=== PATIENT | female | born 1935 | race Caucasian/White ===

== ENCOUNTER 2017-10-22 12:31 | Emergency (ER) | payer MEDICARE ==
[~2017-10-22] VITALS: Ht 165.1 cm; Wt 40.8 kg
[~2017-10-22 12:31] MED LIST: AMLODIPINE BESY10 MG PO; BUMETANIDE1 MG PO; DOXAZOSIN MESYLA2 MG PO; GABAPENTIN300 MG PO; KAYEXALATE453.6 GM PO; LEVAQUIN250 MG PO; METOPROLOL TART25 MG PO; SODIUM BICARBO650 MG PO; Z.0.AMIODARONE HCL20 PO; Z.0.HYDRALAZINE HC10 PO; Z.0.NORVASC5 MG PO; Z.0.ZOLOFT50 MG PO
--- OUTSIDE RECORDS SUMMARY | 2017-10-22 12:34 | XMS REPORT | Clinical Summary ---
Author Author [facility] [facility] Address Unknown Phone Unavailable Care Team Providers Care Hotel Security Officer Name Role Phone Nico Fernando DO PCP Allergies No Known Allergies Current Medications Prescription Sig. Disp. Refills Start End Date Status Date amLODIPine (NORVASC) 10 TK 1 T PO D 0 04/01/20 Active mg tablet 17 hydroCHLOROthiazide TK 1 T PO QD 1 03/08/20 Active (HYDRODIURIL) 25 MG 17 tablet isosorbide mononitrate TK 1 T PO QD 3 04/09/20 Active (IMDUR) 60 MG 24 hr 17 tablet metoprolol tartrate TK 1 T PO TID 3 03/31/20 Active (LOPRESSOR) 25 mg tablet 17 sertraline (ZOLOFT) 100 TK 1 T PO QD 3 03/03/20 Active MG tablet 17 aspirin-calcium carbonate Take 81 mg by mouth. Active 81 mg-300 mg calcium(777 mg) tablet Active Problems Problem Noted Date AAA (abdominal aortic aneurysm) 05/22/2017 Last Assessment & Plan: Patient is here to discuss upcoming surgery, TEVAR and carotid-sub bypass Patient with abdominal aortic aneurysm. The patient and I went over the anatomy related to this, risk factors, warning signs, and potential for rupture at any size. Discussed with the patient our general duty nurse to wait until 5.5 cm and the reasoning behind that. Endovascular and open abdominal aortic aneurysm repair both discussed, described, and used a visual posters to help clarify. Major morbidity and mortality were both discussed. Open aortic complications including injury to nearby structures, sexual dysfunction, later abdominal surgical complications were all discussed. Endovascular complications including endoleak, persistent expansion or rupture, need for lifelong surveillance, and access site issues were discussed as well. 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 I spent the majority of the visit answering questions about AAA and surgical intervention options with the patient. Patient will call with decision on whether to proceed with surgery. 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 Telephone Cardiovascular Miriam Fountain MA 05/16/2017 Telephone Cardiovascular Miriam Fountain MA 05/08/2017 [facility] Procedural Cardiology Ismael Jimenes Aortic arch aneurysm Encounter MD [place] 04/29/2017 Office Visit Cardiovascular Ismael Jimenes Aortic arch aneurysm MD Lonny (Primary Dx) 04/16/2017 [facility] Radiology Angela Keating MD 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 04/09/2017 Transcribe Access Angela Keating MD Malignant neoplasm of Orders base of tongue (Primary Dx) 04/04/2017 [facility] Radiology Angela Keating MD 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 03/13/2017 [facility] Radiation Oncology Angela Keating MD Encounter 03/13/2017 Transcribe Access Angela Keating MD Malignant neoplasm of Orders base of tongue (Primary Dx) 11/07/2016 [facility] Radiation Oncology Angela Keating MD Encounter 10/22/2016 [facility] Radiology Angela Keating MD Encounter after 10/21/2016 Social History Tobacco Use Types Packs/Day Years Used Date Former Smoker Alcohol Use Drinks/Week oz/Week Comments No Sex Assigned at Date Recorded Not on file Last Filed Vital Signs Vital Sign Reading Time Taken Blood Pressure 145/66 05/22/2017 3:07 PM CDT Pulse 68 05/22/2017 3:07 PM CDT Temperature 36.8 C (98.3 F) 05/22/2017 3:07 PM CDT Respiratory Rate 16 05/22/2017 3:07 PM CDT Oxygen Saturation - - Inhaled Oxygen - - Concentration Weight 36.4 kg (80 lb 4.8 oz) 05/22/2017 3:07 PM CDT Height 162.6 cm (5' 4") 05/22/2017 3:07 PM CDT Body Mass Index 13.78 05/22/2017 3:07 PM CDT Plan of Treatment Health Maintenance Due Date Last Done Comments ZOSTER VACCINE 1993 PNEUMOCOCCAL 1998 POLYSACCHARIDE VACCINE AGE 65 AND OVER PNEUMOCOCCAL-13 1998 INFLUENZA VACCINE 02/26/2017 Results * Cv cta tavr workup (cta coronary,cta thoracic aorta,cta abdominal runoff) (05/2017 11:20 AM) Specimen Performing Laboratory [facility] [address] [place] [address] [facility] Nuclear Cardiology and Cardiac CT [address] [place] [address] CTA Chest Non-Coronary with Contrast Report Pat.Name:Sahil FLETCHER.ID:[id number] St.Date: 05/08/2017Refer.MD:ISMAEL JIMENES MD Exam Time: 10:43:00 AM Study Type:CTA Chest Non-Coronary W Contrast Height:65inWeight:93.8lb BSA: 1.44 m2 DOBAge:1935,81Y Sex: FEMALEHR: 107 bpm Nuclear Tech:Monica Reynolds RT(R)(CT) Pat. Stat.:Outpatient CPT - 4: CCTA w Thoracic Aorta (NonCongenital) [id number];[id number], CTA ABD/PELV W/WO 17004, CTA Chest non coronary 44594 Nuclear Event ID:[id number] Order ID:[id number] Reason for Study:TEVAR with AAA Procedures:CTA Abdomen Arteries Race:C SUMMARY: Technique: IV contrast was administered and sequential 0.[address] cuts were obtained through the chest using the Siemens Somatom Force CT scanner. Post-processing and 3D reconstruction were done using the [employer] workstation. Interactive image viewing and volumetric display and analysis were also performed. CTA RESULTS Left Main: A normal sized 4.7 mm artery which arises normally from the left sinus of Valsalva and divides into the left anterior descending and circumflex coronary arteries. Mild calcified atherosclerotic plaque but without significant stenosis. Left anterior descending (LAD): A normal sized 4.2mm artery which wraps around the apex and gives off one diagonal branch. Mild calcified and non-calcified atherosclerotic plaque is present in the proximal, mid and distal segments but without significant stenosis. The first diagonal is a 2.7 mm bifurcating artery which has mild calcified and non-calcified atherosclerotic plaque present but with no significant stenosis. Left circumflex: A normal sized 3.3 mm nondominant artery which arises normally from the left main and gives off two major obtuse marginal arteries before terminating in the AV groove. Mild predominantly calcified atherosclerotic plaque is present in the proximal and mid segments but without significant stenosis. The first obtuse marginal is a 2.0 mm bifurcating artery which has mild calcified atherosclerotic plaque present but no significant stenosis. The second obtuse marginal is a 1.9 mm artery which has no significantatherosclerotic plaque present. Right coronary artery: A normal sized 4.3 mm dominant artery which arises normally from the right sinus of Valsalva and gives off several right ventricular branches, a posterolateral branch and the posterior descending artery. Mild predominantly calcified atherosclerotic plaque is present in the proximal, mid and distal segments but without significant stenosis. The posterior descending is a 2.1 mm artery which has no significant atherosclerotic plaque. The posterolateral is a 2.8 mm artery which has no significant atherosclerotic plaque. Stents: None. Bypass Grafts: None. Pulmonary Arteries: The main pulmonary artery is mildly dilated at 3.1 cm but with no proximal thrombus identified. Left Atrial and Pulmonary Vein Dimensions: Left atrial size (A-P diameter) 4.6 cm. Normal PV anatomy Left superior PV18 mm. Left inferior PV15 mm. Right superior PV22 mm. Right inferior PV18 mm. There is no evidence of the left atrial appendage clot. Left Ventricular Valve Morphology/Function: Aortic valve is tri-leaflet and there is no evidence of stenosis or regurgitation. Mitral valve is normal without evidence of regurgitation. Right Ventricular Valve Morphology/Function: Pacing wires visualized in the right atrium and right ventricle Pericardium: No pericardium effusion or pericardial thickening. Thoracic Aortic Dimensions: No aortic dissection is seen. Aortic root3.8 cm. Left sinus: 3.6 cm. Right sinus: 3.5 cm. Non-coronary sinus: 3.6 cm. Sinotubular junction 3.0 cm. Mid ascending thoracic aorta 3.8 cm. Distal ascending thoracic aorta 3.1 cm. Aortic arch 2.4 cm.There is normal takeoff of the great vessels and no significant stenosis in the proximal visualized segments. Aortic Isthmus 2.3 cm. 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 The neck of the aneurysm measures 2cm in diameter. The size is 3.0 cm x 2.9 cm. Descending thoracic aorta 2.4 cm. Upper abdominal Aorta: 2.2 cm with moderate calcified and non-calcified atherosclerotic plaque. Celiac trunk: 4.8 mm with no significant stenosis. Superior mesenteric artery: 6.5 mm with no significant stenosis. Right renal artery: 2.0 mm with no significant stenosis. Accessory right renal artery: 3.0 mm with no significant stenosis. Left renal artery: 5.0 mm with no significant stenosis. Inferior mesenteric artery: 2.2 mm with no significant stenosis. Infrarenal aorta: 1.4 cm with severe calcified and non-calcified atherosclerotic plaque. TAVR Report Calcified Aorta: Characterization of access vessels: Right Common Iliac: Minimum lumen diameter: 7 mm Percent stenosis: None Tortuosity: No Calcification: Mild Right External Iliac: Minimum lumen diameter: 6.5 mm Percent stenosis: None Tortuosity: No Calcification: Mild Right Femoral: Minimum lumen diameter: 6 mm Percent stenosis: None Tortuosity: No Calcification: Mild Left Common Iliac:Minimum lumen diameter: 5 mm Percent stenosis: None Tortuosity: No Calcification: Moderate Left External Iliac: Minimum lumen diameter: 5 mm Percent stenosis: None Tortuosity: No Calcification: No Left Femoral: Minimum lumen diameter: 7 mm Percent stenosis: None Tortuosity: No Calcification: Mild Aortic Bifurcation Left Lower Extremity Left internal iliac is a 4.5 mm artery which has mild calcified and non-calcified atherosclerotic plaque present but with no significant stenosis. Left superficial femoral is a 5.5 mm artery which has mild calcified atherosclerotic plaque present but with no significant stenosis. Right Lower Extremity Right internal iliac is a 4 mm artery which has mild calcified atherosclerotic plaque present but with no significant stenosis. Right superficial femoral is a 5.0 mm artery which has no significant calcified atherosclerotic plaque. Non-Cardiac Findings: Calcified granuloma in the right middle and right lower lobes of the lung and peripheral bullae in the right middle lobe of the lung. She is status post cholecystectomy. There is hepatomegaly with the liver span of 18cm in the mid clavicular line. 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 The neck of the aneurysm measures 2cm in diameter. The size is 3.0 cm x 2.[address] coronary angiography shows coronary atherosclerosis but no significant coronary artery stenosis Pacing wires visualized in the right atrium and right ventricle The LVEF was not performed. There is no evidence of left atrial appendage thrombus. Calcified granuloma in the right middle and right lower lobes of the lung and peripheral bullae in the right middle lobe of the lung. The main pulmonary artery is mildly dilated at 3.1 cm but with no proximal thrombus identified. There is hepatomegaly with the liver span of 18cm in the mid clavicular line. Vascular measurements as noted above. STUDY QUALITY The study quality is excellent. COMMENTS None. The above report was based on a dedicated Cardiovascular CTA Protocol and interpreted by a Lead Auditor.Should a more comprehensive assessment of non-cardiovascular findings be desired, please consult a radiologist.These images are available in the [facility] [employer] PACS system. Signed 05/08/2017 06:13 PM Suhail Riggs MD Procedure Note Interface, Radiology Results In - 05/08/2017 6:13 PM CDT Nuclear Cardiology and Cardiac CT [address] [place] [address] CTA Chest Non-Coronary with Contrast Report Pat.Name: ZEHRA FLETCHER.ID: [id number] .Date: 05/08/2017 Refer.MD: ISMAEL JIMENES MD Exam Time: 10:43:00 AM Study Type:CTA Chest Non-Coronary W Contrast Height: 65in Weight: 93.8lb BSA: 1.44 m2 Age: 2 1935,81Y Sex: FEMALE HR: 107 bpm Nuclear Tech:Monica Reynolds RT(R)(CT) Pat. Stat.:Outpatient CPT - 4: CCTA w Thoracic Aorta (NonCongenital) 27573;39232, CTA ABD/PELV W/WO 39147, CTA Chest non coronary 48166 Nuclear Event ID:[id number] Order ID: [id number] Reason for Study:TEVAR with AAA Procedures:CTA Abdomen Arteries Race: C SUMMARY: Technique: IV contrast was administered and sequential 0.[address] cuts were obtained through the chest using the Siemens Somatom Force CT scanner. Post-processing and 3D reconstruction were done using the [employer] workstation. Interactive image viewing and volumetric display and analysis were also performed. CTA RESULTS Left Main: A normal sized 4.7 mm artery which arises normally from the left sinus of Valsalva and divides into the left anterior descending and circumflex coronary arteries. Mild calcified atherosclerotic plaque but without significant stenosis. Left anterior descending (LAD): A normal sized 4.2mm artery which wraps around the apex and gives off one diagonal branch. Mild calcified and non-calcified atherosclerotic plaque is present in the proximal, mid and distal segments but without significant stenosis. The first diagonal is a 2.7 mm bifurcating artery which has mild calcified and non-calcified atherosclerotic plaque present but with no significant stenosis. Left circumflex: A normal sized 3.3 mm nondominant artery which arises normally from the left main and gives off two major obtuse marginal arteries before terminating in the AV groove. Mild predominantly calcified atherosclerotic plaque is present in the proximal and mid segments but without significant stenosis. The first obtuse marginal is a 2.0 mm bifurcating artery which has mild calcified atherosclerotic plaque present but no significant stenosis. The second obtuse marginal is a 1.9 mm artery which has no significant atherosclerotic plaque present. Right coronary artery: A normal sized 4.3 mm dominant artery which arises normally from the right sinus of Valsalva and gives off several right ventricular branches, a posterolateral branch and the posterior descending artery. Mild predominantly calcified atherosclerotic plaque is present in the proximal, mid and distal segments but without significant stenosis. The posterior descending is a 2.1 mm artery which has no significant atherosclerotic plaque. The posterolateral is a 2.8 mm artery which has no significant atherosclerotic plaque. Stents: None. Bypass Grafts: None. Pulmonary Arteries: The main pulmonary artery is mildly dilated at 3.1 cm but with no proximal thrombus identified. Left Atrial and Pulmonary Vein Dimensions: Left atrial size (A-P diameter) 4.6 cm. Normal PV anatomy Left superior PV18 mm. Left inferior PV15 mm. Right superior PV22 mm. Right inferior PV18 mm. There is no evidence of the left atrial appendage clot. Left Ventricular Valve Morphology/Function: Aortic valve is tri-leaflet and there is no evidence of stenosis or regurgitation. Mitral valve is normal without evidence of regurgitation. Right Ventricular Valve Morphology/Function: Pacing wires visualized in the right atrium and right ventricle Pericardium: No pericardium effusion or pericardial thickening. Thoracic Aortic Dimensions: No aortic dissection is seen. Aortic root 3.8 cm. Left sinus: 3.6 cm. Right sinus: 3.5 cm. Non-coronary sinus: 3.6 cm. Sinotubular junction 3.0 cm. Mid ascending thoracic aorta 3.8 cm. Distal ascending thoracic aorta 3.1 cm. Aortic arch 2.4 cm. There is normal takeoff of the great vessels and no significant stenosis in the proximal visualized segments. Aortic Isthmus 2.3 cm. 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 The neck of the aneurysm measures 2cm in diameter. The size is 3.0 cm x 2.9 cm. Descending thoracic aorta 2.4 cm. Upper abdominal Aorta: 2.2 cm with moderate calcified and non-calcified atherosclerotic plaque. Celiac trunk: 4.8 mm with no significant stenosis. Superior mesenteric artery: 6.5 mm with no significant stenosis. Right renal artery: 2.0 mm with no significant stenosis. Accessory right renal artery: 3.0 mm with no significant stenosis. Left renal artery: 5.0 mm with no significant stenosis. Inferior mesenteric artery: 2.2 mm with no significant stenosis. Infrarenal aorta: 1.4 cm with severe calcified and non-calcified atherosclerotic plaque. TAVR Report Calcified Aorta: Characterization of access vessels: Right Common Iliac: Minimum lumen diameter: 7 mm Percent stenosis: None Tortuosity: No Calcification: Mild Right External Iliac: Minimum lumen diameter: 6.5 mm Percent stenosis: None Tortuosity: No Calcification: Mild Right Femoral: Minimum lumen diameter: 6 mm Percent stenosis: None Tortuosity: No Calcification: Mild Left Common Iliac: Minimum lumen diameter: 5 mm Percent stenosis: None Tortuosity: No Calcification: Moderate Left External Iliac: Minimum lumen diameter: 5 mm Percent stenosis: None Tortuosity: No Calcification: No Left Femoral: Minimum lumen diameter: 7 mm Percent stenosis: None Tortuosity: No Calcification: Mild Aortic Bifurcation Left Lower Extremity Left internal iliac is a 4.5 mm artery which has mild calcified and non-calcified atherosclerotic plaque present but with no significant stenosis. Left superficial femoral is a 5.5 mm artery which has mild calcified atherosclerotic plaque present but with no significant stenosis. Right Lower Extremity Right internal iliac is a 4 mm artery which has mild calcified atherosclerotic plaque present but with no significant stenosis. Right superficial femoral is a 5.0 mm artery which has no significant calcified atherosclerotic plaque. Non-Cardiac Findings: Calcified granuloma in the right middle and right lower lobes of the lung and peripheral bullae in the right middle lobe of the lung. She is status post cholecystectomy. There is hepatomegaly with the liver span of 18cm in the mid clavicular line. 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 The neck of the aneurysm measures 2cm in diameter. The size is 3.0 cm x 2.[address] coronary angiography shows coronary atherosclerosis but no significant coronary artery stenosis Pacing wires visualized in the right atrium and right ventricle The LVEF was not performed. There is no evidence of left atrial appendage thrombus. Calcified granuloma in the right middle and right lower lobes of the lung and peripheral bullae in the right middle lobe of the lung. The main pulmonary artery is mildly dilated at 3.1 cm but with no proximal thrombus identified. There is hepatomegaly with the liver span of 18cm in the mid clavicular line. Vascular measurements as noted above. STUDY QUALITY The study quality is excellent. COMMENTS None. The above report was based on a dedicated Cardiovascular CTA Protocol and interpreted by a Lead Auditor. Should a more comprehensive assessment of non-cardiovascular findings be desired, please consult a radiologist. These images are available in the [facility] [employer] PACS system. Signed 05/08/2017 06:13 PM Suhail Riggs MD * Estimated GFR (05/08/2017 10:46 AM) Component Value Ref Range GFR Non Af Amer 19 (A) mL/min/1.73 m2 GFR Af Amer 23 (A) mL/min/1.73 m2 Comment: Chronic kidney disease: <60 mL/min/1.73m2 Kidney failure: <15 mL/min/1.73m2 The estimated GFR is calculated from the IDMS-traceable Modification of Diet in Renal Disease Equation. The accuracy of the calculation is poor when the creatinine is normal. Calculated values >90 mL/min/1.73m2 are not reported. This equation has not been validated in children (<18 years), women, the elderly (>70 years), or ethnic groups other than Caucasians and Americans. Specimen Performing Laboratory Plasma specimen [facility] DEPARTMENT OF PATHOLOGY AND GENOMIC MEDICINE [address] [place] [id number] * Creatinine level (05/08/2017 10:46 AM) Component Value Ref Range Creatinine 2.4 (H)Comment: Testing performed on the ISTAT 0.5 - 0.9 mg/dL instrument by RN [id number]. Specimen Performing Laboratory Plasma specimen [facility] DEPARTMENT OF PATHOLOGY AND GENOMIC MEDICINE [address] [place] [id number] * CTA Chest W Wo Contrast (04/16/2017 10:59 AM) Specimen Performing Laboratory [facility] [address] [place] [id number] Narrative EXAMINATION:CT ANGIOGRAM CHEST W WO CONTRAST CLINICAL HISTORY:C01 Malignant neoplasm of base of tongue, C01 TECHNIQUE: Multiple CT angiographic images of the chest were obtained during intravenous administration of contrast. Multiple computerized reformatted images as well as 3-D volume rendered images were also obtained.Precontrast images of the chest were also obtained. COMPARISON:Nuclear medicine PET scan 10/22/2016 (negative for tongue cancer metastasis). CT of the neck 04/04/2017 FINDINGS: There is moderate cardiac enlargement with no pericardial fluid. There is hyperinflation with COPD. There are no focal infiltrates. Subpleural cysts in the anterior right upper lobe surface related to COPD. There are no pulmonary metastatic nodules. There is a trace of pleural fluid in the right posterior costophrenic sulcus. There is no mediastinal adenopathy. There are degenerative changes in the dorsal spine. CTA: The pulmonary artery diameter is normal measuring 30.8 mm. The ascending aorta diameter is 35 mm. The descending aorta diameter is 26 mm. There is a focal aneurysm in the aortic arch, left side, which by morphology (oval and focal) could be categorized as a "pseudoaneurysm". The pseudoaneurysm measures 3.3 x 2.4 x 3.4 cm and is connected to the aortic arch with a 16mm mouth. The aneurysm is located near the origin of the left subclavian artery and 2 cm distal to the origin of the left carotid artery in the axial plane. There is no dissection. The celiac and superior mesenteric artery origins are atherosclerotic without significant stenosis. There are single bilateral renal arteries with atherosclerotic origins and moderate stenosis of the origin of the right renal artery. 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 Report was called to Dr. Keating who voicedunderstanding at 1244p. [id number] Procedure Note Hm Interface, Radiology Results Incoming - 04/16/2017 12:59 PM CDT EXAMINATION: CT ANGIOGRAM CHEST W WO CONTRAST CLINICAL HISTORY: C01 Malignant neoplasm of base of tongue, C01 TECHNIQUE: Multiple CT angiographic images of the chest were obtained during intravenous administration of contrast. Multiple computerized reformatted images as well as 3-D volume rendered images were also obtained. Precontrast images of the chest were also obtained. COMPARISON: Nuclear medicine PET scan 10/22/2016 (negative for tongue cancer metastasis). CT of the neck 04/04/2017 FINDINGS: There is moderate cardiac enlargement with no pericardial fluid. There is hyperinflation with COPD. There are no focal infiltrates. Subpleural cysts in the anterior right upper lobe surface related to COPD. There are no pulmonary metastatic nodules. There is a trace of pleural fluid in the right posterior costophrenic sulcus. There is no mediastinal adenopathy. There are degenerative changes in the dorsal spine. CTA: The pulmonary artery diameter is normal measuring 30.8 mm. The ascending aorta diameter is 35 mm. The descending aorta diameter is 26 mm. There is a focal aneurysm in the aortic arch, left side, which by morphology (oval and focal) could be categorized as a "pseudoaneurysm". The pseudoaneurysm measures 3.3 x 2.4 x 3.4 cm and is connected to the aortic arch with a 16mm mouth. The aneurysm is located near the origin of the left subclavian artery and 2 cm distal to the origin of the left carotid artery in the axial plane. There is no dissection. The celiac and superior mesenteric artery origins are atherosclerotic without significant stenosis. There are single bilateral renal arteries with atherosclerotic origins and moderate stenosis of the origin of the right renal artery. 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 Report was called to Dr. Keating who voiced understanding at 1244p. [id number] * POC creatinine (04/16/2017 10:31 AM) Component Value Ref Range POC creatinine 1.9 (H) 0.8 - 1.5 mg/dl Specimen Performing Laboratory Blood [facility] [address] [place] [address] * CT Soft Tissue Neck Wo Contrast (04/04/2017 10:27 AM) Specimen Performing Laboratory [facility] [address] [place] [address] Narrative EXAMINATION:CT SOFT TISSUE NECK WO CONTRAST CT IMAGING WAS PERFORMED WITH ITERATIVE RECONSTRUCTION TECHNIQUE AND/OR AUTOMATED EXPOSURE CONTROL TO REDUCE RADIATION DOSE. 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 FINDINGS: 1. There is no focal mass lesion demonstrated in the neck. There is soft tissue thickening in the area of the piriform sinus and the hypopharynx on the right. There is no definite abnormality in the base of the tongue. There is some thickening of the epiglottis. The appearance is not significantly changed from the prior study and presumably reflects postradiation changes. 2.There is diffuse increase fat density in the neck bilaterally with relatively poor definition of fascial planes also probably reflecting post radiation changes. There is no cervical lymphadenopathy demonstrated. 3.There are multiple surgical clips in the superior to the left lobe of the thyroid. 4.The most striking finding is soft tissue fullness along the lateral aspect of the aortic arch on the left side appearing since last examination measuring at least 5 cm in length and 2.2 cm in thickness. The etiology of this finding is not clear but would suggest either aortic aneurysm or mediastinal lymphadenopathy appearing since the PET/CT. Correlation with CT angiography of the chest is recommended. 5.Transvenous pacemaker is again noted on the left side. Central venous catheter on the right has been removed since the prior examination. IMPRESSION: 1.Increased soft tissue density material appearing along the left lateral aspect of the aortic arch since the last examination suggesting either aortic aneurysm or mediastinal lymphadenopathy. Correlation with CT angiography of the chest is recommended. 2.Postradiation changes in the neck which are stable in appearance compared with the prior study. ANGELA KEATING was informed of these findings on 04/04/2017 11:06 AM and acknowledged understanding of the findings. [facility]-[id number] Procedure Note Hm Interface, Radiology Results Incoming - 04/04/2017 1:03 PM CDT EXAMINATION: CT SOFT TISSUE NECK WO CONTRAST CT IMAGING WAS PERFORMED WITH ITERATIVE RECONSTRUCTION TECHNIQUE AND/OR AUTOMATED EXPOSURE CONTROL TO REDUCE RADIATION DOSE. 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 FINDINGS: 1. There is no focal mass lesion demonstrated in the neck. There is soft tissue thickening in the area of the piriform sinus and the hypopharynx on the right. There is no definite abnormality in the base of the tongue. There is some thickening of the epiglottis. The appearance is not significantly changed from the prior study and presumably reflects postradiation changes. 2. There is diffuse increase fat density in the neck bilaterally with relatively poor definition of fascial planes also probably reflecting post radiation changes. There is no cervical lymphadenopathy demonstrated. 3. There are multiple surgical clips in the superior to the left lobe of the thyroid. 4. The most striking finding is soft tissue fullness along the lateral aspect of the aortic arch on the left side appearing since last examination measuring at least 5 cm in length and 2.2 cm in thickness. The etiology of this finding is not clear but would suggest either aortic aneurysm or mediastinal lymphadenopathy appearing since the PET/CT. Correlation with CT angiography of the chest is recommended. 5. Transvenous pacemaker is again noted on the left side. Central venous catheter on the right has been removed since the prior examination. IMPRESSION: 1. Increased soft tissue density material appearing along the left lateral aspect of the aortic arch since the last examination suggesting either aortic aneurysm or mediastinal lymphadenopathy. Correlation with CT angiography of the chest is recommended. 2. Postradiation changes in the neck which are stable in appearance compared with the prior study. ANGELA KEATING was informed of these findings on 04/04/2017 11:06 AM and acknowledged understanding of the findings. [facility]-[id number] * POC glucose (10/22/2016 10:23 AM) Component Value Ref Range POC glucose 67 65 - 100 mg/dL Comment: Meter ID: [id number] Tenoner Operator: Miguel Guerra Specimen Performing Laboratory [facility] [place] [address] * PET Skull Base Mid Thigh Restaging (10/22/2016 9:51 AM) Specimen Performing Laboratory [facility] [address] [place] [address] Narrative PROCEDURE:PET SKULL BASE MID THIGH RESTAGING INDICATION:Restaging tongue cancer, subsequent treatment strategy. COMPARISON:No relevant comparison imaging. TECHNIQUE:Blood glucose measured at the time of injection was 67 mg/dL. The patient was then injected with 12.5 mCi of 18F-FDG, IV. Approximately one hour later, PET images were acquired from the skull base to the mid thighs. Corresponding, low dose, non-contrast CT scanning was performed as part of the attenuation correction process. Automated dose exposure control was utilized. FINDINGS: Head and neck:No suspicious brain uptake.Normal uptake is seen in the visualized sinuses, orbits, nasopharynx, and oropharynx.Uptake by the larynx is normal.No suspicious neck lymph node uptake.Post radiation changes are noted in the neck. Chest:No abnormal mediastinal, hilar, or axillary lymph node uptake.No suspicious pulmonary uptake.Small, bilateral pleural effusions are without abnormal uptake. Abdomen:Normal uptake is seen in the stomach, spleen, pancreas, liver, and adrenal glands.No abnormal retroperitoneal or mesenteric lymph node uptake. Pelvis:Physiologic bowel uptake.No abnormal pelvic sidewall or inguinal lymph node uptake. Review of the osseous structures demonstrates no suspicious uptake. IMPRESSION: 1.No evidence for recurrent or metastatic tongue cancer. 2.Small, bilateral pleural effusions. [facility]-[id number] Procedure Note Interface, Radiology Conversion - 10/22/2016 3:46 PM CDT PROCEDURE: PET SKULL BASE MID THIGH RESTAGING INDICATION: Restaging tongue cancer, subsequent treatment strategy. COMPARISON: No relevant comparison imaging. TECHNIQUE: Blood glucose measured at the time of injection was 67 mg/dL. The patient was then injected with 12.5 mCi of 18F-FDG, IV. Approximately one hour later, PET images were acquired from the skull base to the mid thighs. Corresponding, low dose, non-contrast CT scanning was performed as part of the attenuation correction process. Automated dose exposure control was utilized. FINDINGS: Head and neck: No suspicious brain uptake. Normal uptake is seen in the visualized sinuses, orbits, nasopharynx, and oropharynx. Uptake by the larynx is normal. No suspicious neck lymph node uptake. Post radiation changes are noted in the neck. Chest: No abnormal mediastinal, hilar, or axillary lymph node uptake. No suspicious pulmonary uptake. Small, bilateral pleural effusions are without abnormal uptake. Abdomen: Normal uptake is seen in the stomach, spleen, pancreas, liver, and adrenal glands. No abnormal retroperitoneal or mesenteric lymph node uptake. Pelvis: Physiologic bowel uptake. No abnormal pelvic sidewall or inguinal lymph node uptake. Review of the osseous structures demonstrates no suspicious uptake. IMPRESSION: 1. No evidence for recurrent or metastatic tongue cancer. 2. Small, bilateral pleural effusions. [facility]-[id number] after 10/21/2016 Insurance Payer Benefit Subscriber ID Type Phone Address Plan / Group UHC MEDICARE AARP xxxxxxxxx O MEDICARE COMPLETE [facility] [place] [address]
[2017-10-22 14:29] LABS: BASOPHILS % 0.5 % (0.0-1.0); EOSINOPHILS % 0.7 % (0.0-6.0); HEMATOCRIT 32.8 % (34.2-44.1); HEMOGLOBIN 10.5 g/dL (12.0-16.0); LYMPHOCYTES # (AUTO) 0.6 (1.0-3.2); LYMPHOCYTES % 9.6 % (18.0-39.1); MEAN CORPUSCULAR HEMOGLOBIN 31.1 pg (28-32); MONOCYTES # (AUTO) 0.6 (0.2-0.8); MONOCYTES % 9.7 % (4.4-11.3); NEUTROPHILS # (AUTO) 4.8 (2.1-6.9); PLATELET COUNT 189 x10e3/uL (140-360); RED BLOOD COUNT 3.38 x10e6/uL (3.6-5.1); RED CELL DISTRIBUTION WIDTH 15.1 % (11.7-14.4)
[2017-10-22 14:49] LABS: PROTHROMBIN TIME 12.4 seconds (11.9-14.5)
[2017-10-22 14:50] LABS: PARTIAL THROMBOPLASTIN TIME 29.1 seconds (23.8-35.5)
[2017-10-22 14:58] LABS: ALBUMIN 3.1 g/dL (3.5-5.0); ALBUMIN/GLOBULIN RATIO 0.9 (0.8-2.0); ANION GAP 15.7 mmol/L (8-16); CALCIUM 8.5 mg/dL (8.4-10.2); CREATININE, SERUM 2.79 mg/dL (0.57-1.11); POTASSIUM 3.7 mmol/L (3.5-5.1)
--- NOTE | 2017-10-22 15:12 | Diagnostic Imaging Report ---
PROCEDURE: Frontal and lateral views of the chest. COMPARISON: CT, CT CHEST WO, 08/16/2015, 10:21. INDICATIONS: SWELLING PAIN IN RIGHT ARM FINDINGS: Lines/tubes: Left upper chest 2-lead cardiac device. Lungs: Lungs are hyperinflated, with increased retrosternal air, consistent with COPD. Stable linear opacities and rounded lucency projecting near the right lateral costophrenic region, consistent with previously visualized bullous changes and scarring on CT. Stable 4 mm calcified granuloma in the left upper lobe/lingula. No consolidation or pulmonary edema. Pleura: There is no pleural effusion or pneumothorax. Heart and mediastinum: Cardiac silhouette is unremarkable. Pulmonary vasculature is normal. Tortuous aorta with atherosclerotic calcification in the arch and abdominal portion. Bones and soft tissues: Generalized osteopenia. Increased thoracic kyphosis. Stable mild anterior wedge deformity of lower thoracic body. Linear metallic density projecting in the right axillary region, as well as multiple metallic clips. IMPRESSION: 1. COPD changes, without acute cardiopulmonary abnormalities. Himanshu Giang M.D. Dictated by: Himanshu Giang M.D. on 10/22/2017 at 15:12 Electronically approved by: Himanshu Giang M.D. on 10/22/2017 at 15:12
--- NOTE | 2017-10-22 18:11 | Diagnostic Imaging Report ---
PROCEDURE:X-RAY RIGHT SHOULDER, COMPLETE COMPARISON:DX, CHEST SINGLE (NOT PORTABLE), 05/04/2014, 15:29. DX, CHEST SINGLE (NOT PORTABLE), 12/06/2014, 19:48. Patients [facility], DX, CHEST SINGLE (PORTABLE), 08/14/2015, 10:16. Patients [facility], CT, CT CHEST WO, 08/16/2015, 10:21. Patients [facility], DX, CHEST 2 VIEWS, 10/22/2017, 14:20. INDICATIONS:swelling in arm/shoulder FINDINGS: Generalized osteopenia. No acute displaced fracture or dislocation. No lytic or blastic lesion. Glenohumeral joint is grossly unremarkable. No a.c. separation. Linear metallic density which has the appearance of a needle projecting in the soft tissues of the axillary region, which has been present since chest x-ray dated 05/04/2014 CONCLUSION: 1. No acute abnormalities in the shoulder. 2. Linear metallic density with the appearance of a needle, in the axillary region has been present since chest x-ray dated 05/04/2014 Himanshu Giang M.D. Dictated by: Himanshu Giang M.D. on 10/22/2017 at 18:12 Electronically approved by: Himanshu Giang M.D. on 10/22/2017 at 18:12
[2017-10-22 19:22] VITALS: BP 134/64
== END 2017-10-22 18:18 | disposition home or self-care (01) ==
LOC: ER 12:31
DX: S20.211A Contusion of right front wall of thorax, initial encounter (principal); R93.7 Abnormal findings on diagnostic imaging of other parts of musculoskeletal system; Z95.810 Presence of automatic (implantable) cardiac defibrillator
CPT/HCPCS: 36415; 71046; 80053; 84484; 85025; 85610; 85730; 93005; 93971

== ENCOUNTER 2018-09-30 11:40 | Inpatient (IN) | payer MEDICARE ==
[~2018-09-30] VITALS: Ht 165.1 cm; Wt 35.4 kg
--- OUTSIDE RECORDS SUMMARY | 2018-09-30 11:43 | XMS REPORT | Clinical Summary ---
Author Author [facility] Address Unknown Phone Unavailable Care Team Providers Care Media Supervisor Name Role Phone Trace Fernando DO PCP Allergies No Known Allergies Medications End Date Status Medication Sig Dispensed Refills Start Date Active amLODIPine (NORVASC) 10 TK 1 T PO D 0 mg tablet 7 Active hydroCHLOROthiazide TK 1 T PO QD 1 (HYDRODIURIL) 25 MG 7 tablet Active isosorbide mononitrate TK 1 T PO QD 3 (IMDUR) 60 MG 24 hr 7 tablet Active metoprolol tartrate TK 1 T PO TID 3 (LOPRESSOR) 25 mg tablet 7 Active sertraline (ZOLOFT) 100 TK 1 T PO QD 3 MG tablet 7 Active aspirin-calcium carbonate Take 81 mg by 0 81 mg-300 mg calcium(777 mouth. mg) tablet Active Problems Problem Noted Date AAA (abdominal aortic aneurysm) 05/22/2017 Last Assessment & Plan: Patient is here to discuss upcoming surgery, TEVAR and carotid-sub bypass Patient with abdominal aortic aneurysm. The patient and I went over the anatomy related to this, risk factors, warning signs, and potential for rupture at any size. Discussed with the patient our physician general internal medicine to wait until 5.5 cm and the [...] surgery. ESRD (end stage renal disease) 05/22/2017 Social History Date Tobacco Use Types Packs/Day Years Used Former Smoker Alcohol Use Drinks/Week oz/Week Comments No Sex Assigned at Date Recorded Not on file Industry Job Start Date Occupation Not on file Not on file Not on file Travel End Travel History Travel Start No recent travel history available. Last Filed Vital Signs Not on file Plan of Treatment Health Maintenance Due Date Last Done Comments SHINGLES VACCINES (#1) 1983 65+ PNEUMOCOCCAL VACCINE 1998 (1 of 2 - PCV13) PNEUMOCOCCAL 1998 POLYSACCHARIDE VACCINE AGE 65 AND OVER INFLUENZA VACCINE 02/26/2018 Results Not on fileafter 09/29/2017 Insurance Payer Benefit Subscriber ID Type Phone Address Plan / Group UHC MEDICARE AARP xxxxxxxxx [facility] MEDICARE COMPLETE MCR Advance Directives Patient has advance care planning documents on file. For more information, gudelia christina contact: Edwin Vieira [address] [place] [address]
--- OUTSIDE RECORDS SUMMARY | 2018-09-30 11:43 | XMS REPORT ---
[facility] Address Unknown Phone Unavailable Care Team Providers Care In Store Marketer Name Role Phone Irene ARMENTA Unavailable Unavailable Payers Payer Name Policy Type Policy Number Effective Date Expiration Date Problems This patient has no known problems. Allergies, Adverse Reactions, Alerts Allergy Name Allergy Type Status Severity Reaction(s) Onset Date Inactive Date Treating Clinician Comments No Known Allergies DA Active U 2018-08-12 00:00:00 No Known Drug Allergies DA Active U 2016-11-22 00:00:00 Medications This patient has no known medications. Results Test Description Test Time Test Comments Text Results Atomic Results Result Comments SHOULDER RIGHT COMPLETE [place] [address] Patient Name: EPI RACHEL MR #: [id number] : 1935 Age/Sex: 82/F Req #: [id number] Adm Physician: Ordered by: AIDEN ANDINO ASSEMBLY MACHINE SET UP MECHANIC Report #: [id number] Location: ER Room/Bed: Procedure: [id number] DX/SHOULDER RIGHT COMPLETE Exam Date: Exam Time: REPORT STATUS: Signed PROCEDURE: X-RAY RIGHT SHOULDER, COMPLETE COMPARISON: DX, CHEST SINGLE (NOT PORTABLE), 05/04/2014, 15:29. DX, CHEST SINGLE (NOT PORTABLE), 12/06/2014, 19:48. Patients [facility], DX, CHEST SINGLE (PORTABLE), 08/14/2015, 10:16. Patients [facility], CT, CT CHEST WO, 08/16/2015, 10:21. Patients [facility], DX, CHEST 2 VIEWS, 10/22/2017, 14:20. INDICATIONS: swelling in arm/shoulder FINDINGS: Generalized osteopenia. No acute displaced fracture or dislocation. No lytic or blastic lesion. Glenohumeral joint is grossly unremarkable. No a.c. separation. Linear metallic density which has the appearance of a needle projecting in the soft tissues of the axillary region, which has been present since chest x-ray dated 05/04/2014 CONCLUSION: 1. No acute abnormalities in the shoulder. 2. Linear metallic density with the appearance of a needle, in the axillary region has been present since chest x-ray dated 05/04/2014 Dalton Giang M.D. Dictated by: Dalton Giang M.D. on 10/22/2017 at 18:12 Electronically approved by: Dalton Giang M.D. on 10/22/2017 at 18:12 Dictated By: DALTON GIANG MD 11 Transcribed By: NICOLE on 10/22/171811 COPY TO: AIDEN ANDINO ASSEMBLY MACHINE SET UP MECHANIC CHEST 2 VIEWS [place] [address] Patient Name: EPI RACHEL MR #: [id number] : 1935 Age/Sex: 82/F Req #: [id number] Adm Physician: Ordered by: AIDEN ANDINO ASSEMBLY MACHINE SET UP MECHANIC Report #: [id number] Location: ER Room/Bed: Procedure: [id number] DX/CHEST 2 VIEWS Exam Date: 10/22/17 Exam Time: 1429 REPORT STATUS: Signed PROCEDURE: Frontal and lateral views of the chest. COMPARISON: CT, CT CHEST WO, 08/16/2015, 10:21. INDICATIONS: SWELLING PAIN IN RIGHT ARM FINDINGS: Lines/tubes: Left upper chest 2-lead cardiac device. Lungs: Lungs are hyperinflated, with increased retrosternal air, consistent with COPD. Stable linear opacities and rounded lucency projecting near the right lateral costophrenic region, consistent with previously visualized bullous changes and scarring on CT. Stable 4 mm calcified granuloma in the left upper lobe/lingula. No consolidation or pulmonary edema. Pleura: There is no pleural effusion or pneumothorax. Heart and mediastinum: Cardiac silhouette is unremarkable. Pulmonary vasculature is normal. Tortuous aorta with atherosclerotic calcification in the arch and abdominal portion. Bones and soft tissues: Generalized osteopenia. Increased thoracic kyphosis. Stable mild anterior wedge deformity of lower thoracic body. Linear metallic density projecting in the right axillary region, as well as multiple metallic clips. IMPRESSION: 1. COPD changes, without acute cardiopulmonary abnormalities. Dalton Giang M.D. Dictated by: Dalton Giang M.D. on 10/22/2017 at 15:12 Electronically approved by: Dalton Giang M.D. on 10/22/2017 at 15:12 Dictated By: DALTON GIANG MD 1512 Transcribed By: NICOLE on 10/22/17 1512 COPY TO: AIDEN ANDINO NP
[2018-09-30] MEDS ORDERED: ALBUTEROL SULF 0.083% NEB SOLN 3 ML NEB NEB STA (12:04)
[2018-09-30] MEDS ORDERED: IPRATROPIUM BROMIDE 0.02% 2.5 ML NEB NEB STA (12:04)
[2018-09-30] MEDS ORDERED: METHYLPREDNISOLONE SOD SUCC 125 MG/2ML VIAL IV ONE (12:15)
--- NOTE | 2018-09-30 12:40 | NUR ---
REC'D PT IN RM 2. SENT FROM DR. HUTCHINSON'S OFFICE P CHECK UP FOR FURTHER EVALUATION OF SHORTNESS OF BREATH
[2018-09-30 12:57] LABS: BASOPHILS % 0.4 % (0.0-1.0); EOSINOPHILS # (AUTO) 0.1 (0.0-0.4); EOSINOPHILS % 1.1 % (0.0-6.0); HEMATOCRIT 36.7 % (34.2-44.1); HEMOGLOBIN 11.6 g/dL (12.0-16.0); LYMPHOCYTES # (AUTO) 0.5 (1.0-3.2); LYMPHOCYTES % 8.6 % (18.0-39.1); MEAN CORPUSCULAR HEMOGLOBIN 30.9 pg (28-32); MEAN CORPUSCULAR HGB CONC 31.6 g/dL (31-35); MEAN CORPUSCULAR VOLUME 97.9 fL (81-99); MONOCYTES # (AUTO) 0.5 (0.2-0.8); NEUTROPHILS # (AUTO) 4.5 (2.1-6.9); NEUTROPHILS % 80.5 % (38.7-80.0); PLATELET COUNT 151 x10e3/uL (140-360); RED BLOOD COUNT 3.75 x10e6/uL (3.6-5.1); RED CELL DISTRIBUTION WIDTH 14.9 % (11.7-14.4)
[2018-09-30 13:00] LABS: ABG HCO3 25 mmol/L (23-28); ABG PCO2 29 mmHg (41-51); ABG PH 7.54 (7.31-7.41); ABG PO2 126 mmHg (80-105)
[2018-09-30 13:16] LABS: ALBUMIN 3.4 g/dL (3.5-5.0); ANION GAP 17.7 mmol/L (8-16); CALCIUM 8.4 mg/dL (8.4-10.2); CREATININE, SERUM 2.65 mg/dL (0.57-1.11); POTASSIUM 3.7 mmol/L (3.5-5.1)
[2018-09-30 13:19] LABS: INR 0.92; PROTHROMBIN TIME 12.9 seconds (11.9-14.5)
[2018-09-30 13:20] LABS: PARTIAL THROMBOPLASTIN TIME 30.9 seconds (23.8-35.5)
[2018-09-30] MEDS ORDERED: CEFTRIAXONE SOD 1 GM VIAL IV SCH (14:15)
[2018-09-30] MEDS ORDERED: ASPIRIN 81 MG CHEW TAB PO ONE (14:15)
--- OUTSIDE RECORDS SUMMARY | 2018-09-30 14:40 | XMS REPORT | Clinical Summary ---
Author Author [facility] Organization [facility] Address Unknown Phone Unavailable Care Team Providers Care Lead Miner Name Role Phone Trace Fernando DO PCP [...] any size. Discussed with the patient our legal practice manager to wait until 5.5 cm and the [...] Plan / Group UHC MEDICARE AARP xxxxxxxxx [facility] MEDICARE COMPLETE MCR Advance Directives Patient has advance care planning documents on file. For more information, gudelia christina contact: Edwin Vieira [address] [place] [address]
[2018-09-30] MEDS: CEFTRIAXONE SOD 1 GM/NS 50 ML 50 ML IV SCH (15:10)
--- NOTE | 2018-09-30 15:12 | Diagnostic Imaging Report ---
EXAMINATION: PA and lateral views of the chest. COMPARISON: None CLINICAL HISTORY: Shortness of breath DISCUSSION: Lines/tubes: Dual-lead pacemaker. Lungs: The lungs are hyperinflated with splaying of the pulmonary markings. Increased AP thoracic dimension. Pleura: No pleural effusion or pneumothorax. Heart and mediastinum: Mild cardiomegaly. Aortic tortuosity with calcification. Bones and soft tissues: No acute bony abnormalities. IMPRESSION: Emphysematous change. No consolidative pneumonia. Signed by: Dr. Buddy Fernandez M.D. on 09/30/2018 3:09 PM
--- NOTE | 2018-09-30 15:22 | NUR ---
pt/family updated on poc/pending admit. tolerating ivf infusing with no problem.
[2018-09-30] MEDS: AZITHROMYCIN 500MG/NS 250 ML 250 ML IV SCH (15:50)
[2018-09-30] MEDS: FAMOTIDINE 20 MG TAB PO SCH (19:36)
[2018-09-30] MEDS: ALBUTEROL/IPRATROPIUM 3 ML NEB NEB SCH ×2 (20:10→23:00)
[2018-09-30] MEDS: SODIUM BICARBONATE 650 MG TAB PO SCH (21:00)
[2018-09-30] MEDS: METOPROLOL TARTRATE 25 MG TAB PO SCH (21:00)
[2018-09-30] MEDS: METHYLPREDNISOLONE SOD SUCC 125 MG/2ML VIAL IV SCH (21:00)
[2018-09-30] MEDS ORDERED: METHYLPREDNISOLONE SOD SUCC 125 MG/2ML VIAL IV SCH (22:00)
[2018-10-01] VITALS (9 sets, daily range): BP systolic 109–136; BP diastolic 52–77
[2018-10-01] MEDS ORDERED: DIPHENHYDRAMINE HCL INJ 50 MG/ML VIAL IV STA (00:50)
--- NOTE | 2018-10-01 01:23 | Consultation ---
DATE OF CONSULTATION: Pulmonary Critical Care Consultation. CHIEF COMPLAINT: Dyspnea. HISTORY OF PRESENT ILLNESS: The patient is an 83-year-old woman. She has a history of end-stage renal disease and is on dialysis. She also has a history of prior cardiac disease. She has a thoracic aneurysm as well as diastolic heart failure. She had tachy-anat syndrome and required a pacemaker. In July of 2015, she was admitted with decompensated diastolic heart failure and anemia. She required a blood transfusion as well as continued dialysis and she had some improvement. She also has a history of COPD and uses an inhaler at home. She does not use any oxygen. She is going to her physician today and was complaining of worsening dyspnea. She also noted some hoarseness in her throat. She denied any fever or phlegm production. PAST SURGICAL HISTORY: 1. 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 2. History of a pacemaker. 3. History of cholecystectomy. 4. History of cataract surgery. 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 She has been re-evaluated by Oncology and is not having any recurrence. 2. 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 3. COPD. 4. End-stage renal disease with ongoing dialysis. 5. History of a small pulmonary nodule 2 years ago. FAMILY HISTORY: There is a history of coronary artery disease in the family. SOCIAL HISTORY: The patient is a recovering alcoholic, but quit drinking over 40 years ago. She quit smoking 40 years ago. She lives in [place]. ALLERGIES: NO KNOWN DRUG ALLERGIES. REVIEW OF SYSTEMS: She does not complain of any fever. She has no headache. She does note some hoarseness. She has no neck pain. She is not complaining of any chest pain. She has no wheezing, although she does note dyspnea. She has no abdominal pain. She has no nausea or vomiting. She has no leg edema. PHYSICAL EXAMINATION: VITAL SIGNS: The patient is afebrile. The blood pressure is 117/64 and the saturation is 91% on 2 L. The pulse is 70 and respiratory rate is 18. HEENT: Shows no facial swelling or erythema. The nasal mucosa is normal. The oropharynx is normal. LYMPHATIC: Shows no submandibular, cervical, or supraclavicular adenopathy. CARDIAC: Reveals regular rate and rhythm with normal S1 and S2. CHEST: Auscultation of lungs reveals clear breath sounds bilaterally. There is no wheezing. ABDOMEN: Soft, nontender. There is no rebound or guarding. EXTREMITIES: Show no leg edema or calf tenderness. There is no cyanosis or clubbing. SKIN: Shows no rashes. NEUROLOGIC: Shows no focal abnormalities. LABORATORY DATA: The white blood cell count is 5.5 and hemoglobin is 11.6. The platelet count is 151. The BUN to creatinine ratio is 47 to 2.65. Other electrolytes are within normal limits. Blood gas is 7.54, 29, and 126 with a bicarb of 25. IMPRESSION: 1. Chronic obstructive pulmonary disease with acute exacerbation. 2. Pulmonary nodule. 3. History of tonsillar cancer. 4. End-stage renal disease, requiring dialysis. 5. Tachy-anat syndrome, requiring a prior pacemaker. 6. Thoracic aneurysm. 7. Chronic diastolic heart failure. PLAN: 1. The patient will be continued on oxygen along with bronchodilators. 2. She will begin Solu-Medrol. 3. Antibiotics. 4. CT scan of the chest without contrast to evaluate prior pulmonary nodule. 5. Continue dialysis as needed. Sarabjit Canchola MD [facility] /[phone]
--- NOTE | 2018-10-01 02:54 | NUR ---
Received patient from EVENING NURSE, patient is currently stable, patient received benardryl for insomnia.
[2018-10-01] MEDS: ALBUTEROL/IPRATROPIUM 3 ML NEB NEB SCH ×6 (03:32→23:00)
[2018-10-01 06:02] LABS: BASOPHILS % 0.2 % (0.0-1.0); HEMATOCRIT 31.2 % (34.2-44.1); LYMPHOCYTES # (AUTO) 0.1 (1.0-3.2); LYMPHOCYTES % 2.4 % (18.0-39.1); MEAN CORPUSCULAR HEMOGLOBIN 31.3 pg (28-32); MEAN CORPUSCULAR HGB CONC 32.1 g/dL (31-35); MEAN CORPUSCULAR VOLUME 97.8 fL (81-99); MONOCYTES # (AUTO) 0.2 (0.2-0.8); MONOCYTES % 3.2 % (4.4-11.3); NEUTROPHILS # (AUTO) 4.7 (2.1-6.9); NEUTROPHILS % 93.6 % (38.7-80.0); PLATELET COUNT 148 x10e3/uL (140-360); RED BLOOD COUNT 3.19 x10e6/uL (3.6-5.1); RED CELL DISTRIBUTION WIDTH 14.8 % (11.7-14.4)
[2018-10-01 06:19] LABS: CREATINE KINASE MB 0.8 ng/mL (0-5.0)
[2018-10-01 06:43] LABS: CALCIUM 7.7 mg/dL (8.4-10.2); CREATININE, SERUM 3.61 mg/dL (0.57-1.11)
--- NOTE | 2018-10-01 07:21 | NUR ---
Endorsed to next shift for continuity of care.
[2018-10-01] MEDS: FAMOTIDINE 20 MG TAB PO SCH ×2 (07:30→16:53)
--- NOTE | 2018-10-01 08:17 | NUR ---
Received patient this morning, christiana, consuelo women with hx of COPD, presented with difficulties breathing, on O2 NC 3 L at 100% and tapered to 2L and at 98%, LS with scattered wheezing, on solumedrol, tolerating well, will monitor.
[2018-10-01] MEDS: METOPROLOL TARTRATE 25 MG TAB PO SCH ×3 (09:00→20:51)
[2018-10-01] MEDS: SODIUM BICARBONATE 650 MG TAB PO SCH ×3 (09:00→20:51)
[2018-10-01] MEDS ORDERED: AMLODIPINE BESYLATE 10 MG TAB PO SCH (09:00)
[2018-10-01] MEDS: BUMETANIDE 1 MG TAB PO SCH ×2 (09:00→16:53)
[2018-10-01] MEDS: METHYLPREDNISOLONE SOD SUCC 125 MG/2ML VIAL IV SCH (09:20)
--- NOTE | 2018-10-01 10:18 | NUR ---
Patient assisted to bathroom, unable to void, on dialysis twice per week per patient, running Afib with tachycardia on exertion and attending notified, had metoprolol this morning, some SOB but resolves and desats to 89/90 on RA.
[2018-10-01] MEDS ORDERED: DIPHENHYDRAMINE HCL INJ 50 MG/ML VIAL IV PRN (11:00)
--- NOTE | 2018-10-01 11:02 | Diagnostic Imaging Report ---
EXAM: CT Chest WITHOUT contrast 09/30/2018 6:04 PM INDICATION: Pulmonary nodule, COPD COMPARISON: Chest x-ray, 09/30/2018; chest CT, 08/16/2015 TECHNIQUE: Chest was scanned utilizing a multidetector helical scanner from the lung apex through the level of the adrenal glands without administration of IV contrast. Absence of intravenous contrast decreases sensitivity for detection of lymphadenopathy and vascular pathology. Coronal and sagittal reformations were obtained. Routine protocol was performed. Dose modulation, iterative reconstruction, and/or weight based adjustment of the mA/kV was utilized to reduce the radiation dose to as low as reasonably achievable. IV CONTRAST: None RADIATION DOSE: Total DLP: 146.06 mGy*cm Estimated effective dose: (DLP x 0.014 x size factor) mSv COMPLICATIONS: None FINDINGS: LINES/ TUBES: There is a cardiac device implanted in the anterior left chest wall with subclavian transvenous leads extending to the right atrium and right ventricular apex. LUNGS AND AIRWAYS: The lungs are hyperinflated with moderate centrilobular thickening. There are numerous pneumatoceles at the lung bases, largest at the lateral left lung base. There is a 1.0 cm groundglass opacity at the anterior left upper lobe (previous 1.2 cm) (series 2, image 32). An adjacent 0.4 cm nodule is also stable from previous exam. No new airspace opacity. Trachea and main bronchi are clear. There is moderate bilateral perihilar bronchial wall thickening again noted. PLEURA: Small bilateral pleural effusions have resolved since previous exam. HEART AND MEDIASTINUM: The thyroid gland is normal. No mediastinal, hilar or axillary lymphadenopathy. Scattered nodes measuring up to 1.2 cm are stable. There is mild cardiomegaly which appears improved from previous exam. Previous trace pericardial effusion has resolved. The thoracic aorta is atherosclerotic with extensive calcification. 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 This aneurysm measures up to 5.4 cm diameter and extends beyond the mural calcified plaque. The ascending aorta measures 3.7 cm and the proximal descending aorta measures 2.9 cm. The main pulmonary artery is dilated measuring 3.4 cm. UPPER ABDOMEN: Included portions of the unenhanced liver, spleen, pancreas, adrenals and kidneys show no focal abnormality. Calcifications in the central portions of the kidneys are likely vascular rather than representing calculi. BONES: No acute or suspicious bony lesion. There are degenerative changes with kyphosis in the thoracic spine. SOFT TISSUES: Superficial surrounding soft tissue unremarkable. Findings were discussed with Dr. Eric Canchola on 10/01/2018 at 10:40 AM. IMPRESSION: 1. 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 This extends beyond mural calcifications and may represent a contained rupture. The ascending aorta and descending aorta are normal diameter. After discussion with the referring physician, this has apparently been evaluated elsewhere and is a known finding. 2. Hyperinflation of the lungs compatible with advanced emphysema and bronchitis. 3. 1 cm groundglass nodule in the left upper lobe and adjacent 4 mm nodule are stable from previous CT in 2016. 4. Improvement of congestive failure with resolution of small pleural effusions. Signed by: Dr. Fabio Giraldo M.D. on 10/01/2018 10:59 AM
--- NOTE | 2018-10-01 11:51 | NUR ---
Consult to Dr. Barger and has been called and notified, CLAIM ADMINISTRATOR will be in to see patient later today.
[2018-10-01] MEDS ORDERED: SODIUM CHLORIDE 0.9% 250ML 250 ML ONE (13:13)
[2018-10-01 13:27] LABS: BILIRUBIN,URINE NEGATIVE (NEGATIVE); CLARITY,URINE CLEAR (CLEAR); COLOR,URINE YELLOW (YELLOW); KETONES,URINE NEGATIVE (NEGATIVE); LEUKOCYTE ESTERASE ,URINE NEGATIVE (NEGATIVE); NITRITE,URINE NEGATIVE (NEGATIVE); PROTEIN,URINE DIPSTICK NEGATIVE (NEGATIVE); URINE UROBILINOGEN 0.2 mg/dL (0.2 - 1)
[2018-10-01 13:36] LABS: AMORPHOUS SEDIMENT,URINE MODERATE (FEW); BACTERIA,URINE MODERATE /HPF; EPITHELIAL CELLS,URINE FEW /LPF; RBC,URINE 0-5 /HPF (0-5); RENAL EPITHELIAL CELLS,URINE RARE
--- NOTE | 2018-10-01 13:38 | NUR ---
Patient placed on floor Tele monitor number 3 for floor transfer
--- NOTE | 2018-10-01 13:43 | NUR ---
Another call to Dr. Nye's office for notification regarding consult.
--- NOTE | 2018-10-01 13:53 | NUR ---
RECEIVED CALL FROM DR. FAIR STATES HE WILL SEE PT LATER TODAY. PT USUALLY HAS DIALYSIS ON SATURDAY AND SATURDAY.
--- NOTE | 2018-10-01 14:12 | NUR ---
Patient alert and responsive, VSS, was transferred to the floor at this time after giving report to DOLORES Brito. On O2 2L NC, no resp distress, on Tele with O2 monitoring.
[2018-10-01] MEDS: AZITHROMYCIN 500MG/NS 250 ML 250 ML IV SCH (14:20)
[2018-10-01] MEDS: CEFTRIAXONE SOD 1 GM/NS 50 ML 50 ML IV SCH (16:28)
--- NOTE | 2018-10-01 17:26 | Progress Note ---
DATE: Pulmonary Critical Care Progress Note SUBJECTIVE: The patient reports less dyspnea today. She has less cough. She denies chest pain. PHYSICAL EXAMINATION: VITAL SIGNS: The blood pressure is 112/70 and the pulse is 117. Respiratory rate is 16. The patient has 100% saturation on 3 L. HEENT: Shows no facial swelling or erythema. CARDIAC: Reveals irregularly irregular rhythm with normal S1 and S2. LUNGS: Auscultation of lungs reveals prolonged expiratory phase bilaterally. ABDOMEN: Soft, nontender. There is no rebound or guarding. EXTREMITIES: Show no leg edema or calf tenderness. There is no cyanosis or clubbing. SKIN: Shows no rashes. NEUROLOGICAL: Shows no focal abnormalities. LABORATORY DATA: BUN to creatinine ratio is 63 to 3.61. Other electrolytes are within normal limits. White blood cell count is 5 and hemoglobin is 10. Platelet count is 148. RADIOGRAPHIC DATA: Chest CT shows, 1. 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 2. Ground-glass nodule in the left upper lobe that is stable since 2016. 3. Hyperinflation of lungs consistent with COPD. ASSESSMENT: 1. Chronic obstructive pulmonary disease with acute exacerbation. 2. End-stage renal disease. 3. Chronic diastolic heart failure. 4. Tachy-anat syndrome, requiring a pacemaker. 5. Aortic aneurysm. PLAN: 1. Decrease Solu-Medrol. 2. Continue current management by Nephrology. 3. Complete cardiac evaluation. Sarabjit Canchola MD [facility] /[id number]
[2018-10-01] MEDS: METHYLPREDNISOLONE SOD SUCC 40 MG/ML VIAL 1ML IV SCH (20:50)
[2018-10-01] MEDS ORDERED: METHYLPREDNISOLONE SOD SUCC 125 MG/2ML VIAL IV SCH (21:00)
[2018-10-02] VITALS (8 sets, daily range): BP systolic 120–140; BP diastolic 64–87
[2018-10-02] MEDS: ALBUTEROL/IPRATROPIUM 3 ML NEB NEB SCH ×6 (02:07→23:05)
[2018-10-02 03:47] LABS: BASOPHILS % 0.1 % (0.0-1.0); HEMATOCRIT 32.5 % (34.2-44.1); HEMOGLOBIN 10.3 g/dL (12.0-16.0); LYMPHOCYTES # (AUTO) 0.3 (1.0-3.2); LYMPHOCYTES % 2.6 % (18.0-39.1); MEAN CORPUSCULAR HEMOGLOBIN 31.2 pg (28-32); MEAN CORPUSCULAR HGB CONC 31.7 g/dL (31-35); MEAN CORPUSCULAR VOLUME 98.5 fL (81-99); MONOCYTES # (AUTO) 0.4 (0.2-0.8); MONOCYTES % 4.4 % (4.4-11.3); NEUTROPHILS # (AUTO) 9.3 (2.1-6.9); NEUTROPHILS % 92.2 % (38.7-80.0); PLATELET COUNT 158 x10e3/uL (140-360)
[2018-10-02 04:07] LABS: ANION GAP 17.5 mmol/L (8-16); CALCIUM 7.5 mg/dL (8.4-10.2); CREATININE, SERUM 3.52 mg/dL (0.57-1.11); MAGNESIUM 2.1 MG/DL (1.3-2.1); POTASSIUM 4.5 mmol/L (3.5-5.1)
[2018-10-02 07:24] LABS: LYMPHOCYTES % (MANUAL) 5 % (19-48); MONOCYTES % (MANUAL) 5 % (3.4-9.0); NEUTROPHILS % (MANUAL) 90 % (40-74)
[2018-10-02] MEDS: FAMOTIDINE 20 MG TAB PO SCH ×2 (07:30→17:24)
[2018-10-02] MEDS: SODIUM BICARBONATE 650 MG TAB PO SCH ×3 (09:00→21:15)
[2018-10-02] MEDS: METHYLPREDNISOLONE SOD SUCC 40 MG/ML VIAL 1ML IV SCH (09:00)
[2018-10-02] MEDS ORDERED: ONDANSETRON HCL INJ 2MG/ML 2ML 2 MG/ML VIAL IV PRN (10:00)
[2018-10-02] MEDS ORDERED: ACETAMINOPHEN 325 MG TAB PO PRN (10:00)
--- NOTE | 2018-10-02 10:08 | NUR ---
Patient alert and responsive, OOB and assisted to bathroom, rounds by attending LOBSTERMAN and cardiology and changes made to orders, noted in chart patient will have dialysis today but no orders, called and left message for clarification.
[2018-10-02] MEDS: AZITHROMYCIN 500MG/NS 250 ML 250 ML IV SCH (14:07)
[2018-10-02] MEDS: CEFTRIAXONE SOD 1 GM/NS 50 ML 50 ML IV SCH (15:00)
[2018-10-02] MEDS ORDERED: SODIUM CHLORIDE 0.9% 1000ML 1,000 ML ONE (15:06)
--- NOTE | 2018-10-02 16:09 | NUR ---
CASE MANAGEMENT INITIAL ASSESSMENT Wheel Worker to bedside to discuss plan of care with patient/family. CM/SW role and care transitions discussed. Anticipated discharge plan discussed along with duration of care. CM/SW discussed patients right to make decisions in care. CM work hours given. Patient lives: PATIENT LIVES IN APARTMENT COMPLEX ALONE IN [place], [place] Admit/Transfer: ED Hospital/ER visits since last admit: NO POA/Emergency contact: DAUGHTER SHANI AMAYA [phone] Current/Previous Home Health: YES; DOES NOT REMEMBER NAME PCP/Follow-up Care: DR. JACE HUTCHINSON Current/Previous DME: WALKER, WHEELCHAIR, CANE Medications (referring to index hospitalization or the first time you were in the hospital) a. Were changes made in your medications when you were in the hospital on [date of index hospitalization]? Yes No Not sure Explain: Note: If no or not sure, please skip to question d b. Did you understand the changes? Yes No Explain: c. Were you able to obtain your new medications right away? Yes Non/a SNF only Explain: d. Were you able to take your medications like the doctor wanted you to? Yes No Explain: e. Did the hospital give you an accurate, easy to understand list of medications when you left? Yes No n/a SNF only Explain: Scale of 1-10 how comfortable does patient feel with disease management in outpatient setting: Other Services: DIALYSIS SATURDAY AND SATURDAY AT [facility] Employment Status: RETIRED Areas of Concerns: COPD Referral Needs: HOME HEALTH FOR COPD MANAGEMENT Education Needs: COPD MANAGEMENT IMM/GASTELUM given and signed (if applicable): NOT AT THIS TIME Goal for discharge: DISCHARGE HOME WITH HOME HEALTH FOR COPD MANAGEMENT CM left business card at the bedside with contact information. Name and number was also written on the patients whiteboard. Patient verbalized understanding of discussion. CM will follow-up with ongoing discharge and transition of care needs.
--- NOTE | 2018-10-02 16:35 | Consultation ---
DATE OF CONSULTATION: 10/01/2018 REASON FOR CONSULTATION: AFib. CONSULTING PHYSICIAN: Trace Mayo MD HISTORY OF PRESENT ILLNESS: This is a pleasant, but frail 83-year-old female who presented with shortness of breath. According to the patient, she was having shortness of breath and difficulty with breathing. She went to see PCP. At the PCP office, they checked her oxygen saturation, it was low and she was sent to the emergency room for further evaluation. She was found in the ER with AFib with RVR and Cardiology was consulted. In the emergency room, she was trying to get out of the bed. She had a few runs of nonsustained V-tach. She denied any chest pain, any palpitation, any diaphoresis, any nausea, or vomiting. PAST MEDICAL HISTORY: Pulmonary hypertension, AAA 3.9 cm, left lung nodule 1.2 cm, syncope, bradycardia, hypertension, CKD, COPD, insomnia, end-stage renal disease on dialysis, sick sinus syndrome, and CAD with permanent pacemaker placement. PAST SURGICAL HISTORY: Pacemaker placement, cholecystectomy, parathyroid surgery, and cataract removal from both eyes. FAMILY HISTORY: Noncontributory. SOCIAL HISTORY: No smoking. No drinking. MEDICATIONS: See med list. ALLERGIES: SHE IS ALLERGIC TO ALCOHOL. REVIEW OF SYSTEMS: Negative except those mentioned above. She is positive for shortness of breath. PHYSICAL EXAMINATION: VITAL SIGNS: Temperature 97, heart rate 81, blood pressure 129/70, respirations 18, and oxygen saturation 97% on room air. GENERAL: She is thin, frail, alert and oriented x3. HEENT: Mucous membranes moist. NECK: Supple. LUNGS: Bilateral with decreased breath sounds. CARDIOVASCULAR: Irregularly irregular. ABDOMEN: Soft. NEUROLOGIC: Intact. EXTREMITIES: No edema. LABS: Sodium 135, potassium 4.5, chloride 96, CO2 26, BUN 75, creatinine 3.52, and glucose 133. White blood cell 10.0, hemoglobin 10.3, hematocrit 12.5, and platelets 158. PT 12.9, PTT 30.9, and INR 0.92. IMPRESSION: 1. Atrial fibrillation. 2. End-stage renal disease, on dialysis. 3. Acute exacerbation of chronic obstructive pulmonary disease. 4. History of coronary artery disease with [employer] permanent pacemaker. 5. Hypertension. 6. Nonsustained ventricular tachycardia. 7. Anemia. 8. History of 3.9 ascending aortic aneurysm. PLAN: 1. She is on bronchodilators. We will continue the same. 2. We will get an echo to assess LV and valve function. 3. Dialysis per Renal. 4. She is on beta-nemesio. We will continue the same. Heart rate is controlled and she is in atrial fibrillation. 5. She had refused anticoagulation. 6. She had a [employer] permanent pacemaker that had a battery change last year and it was recently interrogated with good function. Further cardiac workup pending clinical course. Thank you for this consultation. Dictated by Kizzy Bradley NP MD [facility] /[id number]
--- NOTE | 2018-10-02 16:42 | NUR ---
Patient's IV to the left arm infiltrated and removed, new IV to the left wrist. Starting dialysis at this time, will monitor.
[2018-10-02] MEDS: METOPROLOL TARTRATE 50 MG TAB PO SCH (17:00)
[2018-10-02] MEDS: BUMETANIDE 1 MG TAB PO SCH (17:00)
--- NOTE | 2018-10-02 19:46 | Progress Note ---
DATE: 10/02/2018 SUBJECTIVE: The patient is receiving dialysis today. OBJECTIVE: VITAL SIGNS: The patient is afebrile. The blood pressure is 140/87 and the saturation is 98% on 2 L. The pulse is 75. HEENT: Shows no facial swelling or erythema. CARDIAC: Reveals a regular rate and rhythm with normal S1 and S2. There are no murmurs or rubs heard. LUNGS: Auscultation of lungs shows a prolonged expiratory phase. There is no wheezing. ABDOMEN: Soft, nontender. There is no rebound or guarding. EXTREMITIES: Show no leg edema or calf tenderness. There is no cyanosis or clubbing. SKIN: Shows no rashes. ASSESSMENT: 1. Chronic obstructive pulmonary disease with acute exacerbation. 2. End-stage renal disease. 3. Aneurysm of the thoracic aorta. 4. Chronic diastolic heart failure. 5. Tachy-anat syndrome, requiring a pacemaker in the past. PLAN: 1. The patient is receiving dialysis. 2. Wean steroids. 3. Continue current cardiac regimen. 4. Continue bronchodilators. Sarabjit Canchola MD [facility] /[id number]
[2018-10-02] MEDS ORDERED: METHYLPREDNISOLONE SOD SUCC 40 MG/ML VIAL 1ML IV SCH (21:00)
[2018-10-03] VITALS: BP 130/60
[2018-10-03] MEDS: ALBUTEROL/IPRATROPIUM 3 ML NEB NEB SCH ×4 (03:20→14:35)
[2018-10-03 03:28] LABS: HEMATOCRIT 32.6 % (34.2-44.1); HEMOGLOBIN 10.2 g/dL (12.0-16.0); LYMPHOCYTES # (AUTO) 0.2 (1.0-3.2); LYMPHOCYTES % 3.1 % (18.0-39.1); MEAN CORPUSCULAR HEMOGLOBIN 31.2 pg (28-32); MEAN CORPUSCULAR HGB CONC 31.3 g/dL (31-35); MEAN CORPUSCULAR VOLUME 99.7 fL (81-99); MONOCYTES # (AUTO) 0.2 (0.2-0.8); MONOCYTES % 3.1 % (4.4-11.3); NEUTROPHILS # (AUTO) 6.7 (2.1-6.9); PLATELET COUNT 136 x10e3/uL (140-360); RED BLOOD COUNT 3.27 x10e6/uL (3.6-5.1)
[2018-10-03 04:00] VITALS: BP 137/59
[2018-10-03 05:34] LABS: ANION GAP 15.2 mmol/L (8-16); CALCIUM 7.7 mg/dL (8.4-10.2); CREATININE, SERUM 1.96 mg/dL (0.57-1.11); POTASSIUM 4.2 mmol/L (3.5-5.1)
--- NOTE | 2018-10-03 07:26 | NUR ---
Received patient and walking rounds complete. Patient asleep at this time no signs of distress. Call light in reach will continue to monitor.
[2018-10-03 08:25] VITALS: BP 153/67
[2018-10-03 08:25] LABS: LYMPHOCYTES % (MANUAL) 4 % (19-48); MONOCYTES % (MANUAL) 1 % (3.4-9.0); NEUTROPHILS % (MANUAL) 95 % (40-74)
[2018-10-03] MEDS ORDERED: RIVAROXABAN 15 MG TABLET PO SCH (09:00)
[2018-10-03] MEDS: BUMETANIDE 1 MG TAB PO SCH ×2 (09:12→17:57)
[2018-10-03] MEDS: METOPROLOL TARTRATE 50 MG TAB PO SCH ×2 (09:12→17:58)
[2018-10-03] MEDS: FAMOTIDINE 20 MG TAB PO SCH ×2 (09:12→17:57)
[2018-10-03] MEDS: SODIUM BICARBONATE 650 MG TAB PO SCH ×2 (09:12→15:21)
--- NOTE | 2018-10-03 09:46 | NUR ---
Nutrition Screen Note RD Recommendation for Physician: -Continue renal diet as ordered -Continue Nepro BID as ordered -Encourage PO and hydration -Rec referral for youth care specialist (hx of anorexia) The patient meets criteria for unspecified SEVERE protein-calorie malnutrition. Plan of Care: RD following, monitoring for tolerance and adequacy Nutrition reason for involvement: BMI Primary Diagnose(s): COPD PMH: COPD, CHF, ESRD on HD, tonsillar cancer, Ht: 65in Wt: 78lb BMI: 13kg/m2 IBW: 125lb RD Assessment: (10/03) Chart reviewed. Labs and meds reviewed. 83yo F, who was admitted for COPD exacerbation. Pt received HD yesterday. Renal function has improved. Visited pt in the room. Pt reported hx of anorexia for her whole life. Pt stated I eat to live and I have never been an eater. Looking back to her last admission on 09/2018, pt has lost ~10-12lb within a year. Nepro was given by RN; however, pt hasnt drunk any of that. No chewing or swallowing difficulty reported. Pt was not interested in any nutrition intervention at this time. Will continue to monitor and follow. Current Diet: renal diet Malnutrition Evaluation (10/03) The patient meets criteria for unspecified SEVERE protein-calorie malnutrition. Energy intake: <75% of estimated energy requirements for >3 months Weight loss: 13% weight loss in 1 year Fat loss: Severe apparent ribs, protrusion of clavicle, hollow look around orbital region Muscle loss: Severe protrusion of acromion process, depression of temporal Supporting Evidence: Fluid accumulation: unable to evaluate Functional Status: no changes Diet Education Needs Assessment: Diet education not indicated. followed by RD at [facility] Nutrition Care Level: high Signed: Courtney Morrow, MS, RD, LD
[2018-10-03 12:00] VITALS: BP 153/67
[2018-10-03 12:17] VITALS: BP 140/66
[2018-10-03] MEDS: AZITHROMYCIN 500MG/NS 250 ML 250 ML IV SCH (13:53)
--- NOTE | 2018-10-03 14:59 | NUR ---
Patient A/O X3, SOB on 2LNC. Bowel sounds active, skin intact, no edema. Small amount of ecchymosis throughout arms. Patient is ambulatory with assist. Left FA 20 gauge IV SL. Right upper arm fistula for dialysis. Call light in reach, will continue to monitor.
[2018-10-03] MEDS ORDERED: XARELTO10 MG PO (15:01)
[2018-10-03] MEDS ORDERED: METOPROLOL TART50 MG PO (15:01)
[2018-10-03] MEDS ORDERED: BUMETANIDE1 MG PO (15:01)
[2018-10-03] MEDS ORDERED: SODIUM BICARBO650 MG PO (15:01)
[2018-10-03] MEDS ORDERED: IPRAT-ALBUT 0.5-3 ML INH (15:05)
[2018-10-03] MEDS ORDERED: CEFUROXIME250 MG PO (15:07)
[2018-10-03] MEDS ORDERED: AZITHROMYCIN250 MG PO (15:07)
[2018-10-03] MEDS: CEFTRIAXONE SOD 1 GM/NS 50 ML 50 ML IV SCH (15:21)
--- NOTE | 2018-10-03 16:08 | NUR ---
WESTLEY SPOKE TO RICKEY GUZMAN WITH DR. VASQUEZ'S GROUP REGARDING HOME NEBULIZER ORDER. THAT ORDER MUST BE WRITTEN ON SCRIPT AND DELIVERED TO PHARMACY BY PATIENT. RICKEY GUZMAN WROTE AND SIGNED SCRIPT, SCRIPT GIVEN TO BEDSIDE NURSE MENDEZ TO GIVE TO PATIENT DURING DISCHARGE TEACHING.
[2018-10-03 16:26] VITALS: BP 128/59
--- NOTE | 2018-10-03 16:45 | NUR ---
CM SPOKE TO PATIENT AT BEDSIDE REGARDING HOME O2 ORDER. PATIENT STATES SHE WILL NEED OXYGEN AND SHE DOES NOT HAVE ANY AT HOME. PATIENT QUALIFIES FOR HOME O2 AFTER HOME O2 EVAL. PATIENT GIVEN CHOICES FOR OXYGEN COMPANIES. CHOICE LETTER SIGNED AND PLACED IN CHART. PATIENT CHOSE [facility]. CLINICAL SENT TO [facility]. PENDING OXYGEN DELIVERY TO BEDSIDE FOR PATIENT TO DISCHARGE. [facility] [address], [place] [address] LIAISON HANDLING CASE: MEETA [phone]
--- NOTE | 2018-10-03 18:26 | Progress Note ---
DATE: 10/03/2018 Pulmonary Critical Care Progress Note SUBJECTIVE: The patient had dialysis yesterday. She feels better this morning and is eager to go home. She does not complain of cough for congestion. PHYSICAL EXAMINATION: VITAL SIGNS: The saturation is 98% on 2 L. The pulse is 66 and blood pressure is 140/88. HEENT: Shows no facial swelling or erythema. CARDIAC: Reveals regular rate and rhythm with normal S1 and S2. LUNGS: Auscultation of lungs reveals clear breath sounds bilaterally. There is no wheezing. ABDOMEN: Soft and nontender. There is no rebound or guarding. EXTREMITIES: Show no leg edema or calf tenderness. There is no cyanosis or clubbing. SKIN: Shows no rashes. NEUROLOGICAL: Shows no focal abnormalities. IMPRESSION: 1. Chronic obstructive pulmonary disease with acute exacerbation. 2. End-stage renal disease. 3. Chronic aneurysm of the thoracic aorta. PLAN: 1. The patient has been scheduled for discharge today. 2. Continue prior inhaler regimen. 3. Continue dialysis and care with Nephrology as an outpatient. Sarabjit Canchola MD [facility] /[id number]
--- NOTE | 2018-10-03 19:44 | NUR ---
received patient aaox3, stable condition. removed iv to left wrist, catheter intact @ 191. patient discharged home, assisted to private auto via wheelchair. all questions and concerns answered. signed discharge packet to chart, copies of prescriptions to chart.
--- NOTE | 2018-10-04 09:37 | NUR ---
Patient was D/C'd prior to the initiation of the PT eval. Addendum: 10/04/18 at 0937 by Suhas Gonsales PT Amended: Links added.
--- NOTE | 2018-10-06 09:22 | Discharge Summary ---
HISTORY: The patient was admitted on 09/30/2018 with complaints of shortness of breath for 24 hours. Denied history of COPD at that time, but clearly does have COPD from the look of her chest x-ray. Denies any use of oxygen at home or nebulizer treatments at home. Has been using inhalers occasionally. Has a dry cough without sputum. Past medical history significant for hypertension, end-stage renal disease, and now COPD. A former smoker, denies smoking now. ADMITTING DIAGNOSES: 1. Acute exacerbation of chronic obstructive pulmonary disease. 2. End-stage renal disease. 3. Hypertension, complicated by end-stage renal disease. 4. Severe protein-calorie malnutrition. 5. Insomnia. DISCHARGE DIAGNOSES: 1. Acute exacerbation of chronic obstructive pulmonary disease. 2. End-stage renal disease. 3. Hypertension, complicated by end-stage renal disease. 4. Severe protein-calorie malnutrition. 5. Insomnia. 6. Atrial fibrillation. CONSULTING PHYSICIANS: 1. Dr. Nye with Nephrology. 2. Dr. Sarabjit Canchola with Pulmonology. 3. Dr. Barger with Cardiology. HOSPITAL COURSE: The patient was given azithromycin and Rocephin along with neb treatments, supplemental oxygen, and IV Solu-Medrol and has shown a considerable improvement. Solu-Medrol completed and she is not currently on any steroid. The patient was seen by Dr. Canchola today and the patient is okay for discharge from his standpoint. We will continue oral cefuroxime and azithromycin for 5 more days. Regarding her end-stage renal disease, her GFR was 24. The patient states she had a bad experience with hemodialysis last night and does not want an additional dialysis completed. Here, the patient was encouraged to continue her usual routine for outpatient hemodialysis. Metoprolol and Bumex were continued for the hypertension. Per Dr. Barger, who saw the patient today, the patient can continue metoprolol at home, Xarelto dosage will be decreased from 15 mg to 10 mg a day. Order rendered for Case Management to obtain a handheld nebulizer for home use for DuoNebs at home as needed. Home oxygen evaluation has been ordered, however, discussed this with Dr. Canchola and the patient will likely not qualify for home oxygen. PERTINENT DIAGNOSTICS AND LABS: The patient's BUN and creatinine were 28 and 1.96 today. Platelets 136. On admission, white blood cell count 5.56, today 7.18. Urinalysis essentially negative on October 01. Hepatitis B surface antigen, hepatitis B surface antibody, and hepatitis B core total antibody were all negative, and hepatitis B surface antibody 15.3. Influenza types A and B were negative. 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 Ascending and descending aorta, normal diameter. Per report from the radiologist after discussion with the referring physician, this has apparently been evaluated elsewhere and is a known finding. Hyperinflation of the lungs compatible with advanced emphysema and bronchitis. Improvement of congestive heart failure with resolution of small pleural effusions. No change in physical exam. Respirations relaxed and unlabored. Diminished lung sounds, consistent with COPD. DISPOSITION: Home without home health. The patient to continue renal diet. Follow up with PCP as well as digital media coordinator, Dr. Canchola in 1 to 2 weeks. Medication reconciliation has been completed. Several changes to home medications as well as new medicine. Dictated by Dennis Maki NP MD [facility]P/[facility] /[id number]
== END 2018-10-03 18:48 | disposition home or self-care (01) | DRG 190 ==
LOC: ER 11:40 → ERHOLD 14:38 → MED/SURG 10-01 14:11 → OBSVTOIN 10-02 09:57
PROVIDERS: ADMIT Internal Medicine; ATTEND Internal Medicine
PROC: 5A1D70Z Performance of Urinary Filtration, Intermittent, Less than 6 Hours Per Day (ICD-10-PCS; principal; 2018-10-02)
DX: J44.0 Chronic obstructive pulmonary disease with (acute) lower respiratory infection (principal); N18.6 End stage renal disease; E43 Unspecified severe protein-calorie malnutrition; I13.2 Hypertensive heart and chronic kidney disease with heart failure and with stage 5 chronic kidney disease, or end stage renal disease; I50.32 Chronic diastolic (congestive) heart failure; Z68.1 Body mass index [BMI] 19.9 or less, adult; J44.1 Chronic obstructive pulmonary disease with (acute) exacerbation; J20.9 Acute bronchitis, unspecified; R00.1 Bradycardia, unspecified; Z85.89 Personal history of malignant neoplasm of other organs and systems; I71.2 Thoracic aortic aneurysm, without rupture; Z95.810 Presence of automatic (implantable) cardiac defibrillator; Z99.2 Dependence on renal dialysis; R91.8 Other nonspecific abnormal finding of lung field; I48.91 Unspecified atrial fibrillation; D64.9 Anemia, unspecified; G47.00 Insomnia, unspecified
CPT/HCPCS: 36415; 36600; 71046; 71250; 80048; 80053; 81001; 82550; 82553; 82805; 83735; 83880; 84100; 84443; 84484; 85025; 85610; 85730; 86704; 86706; 87086; 87340; 87400; 93005; 93306; 94640; 99284; G0378; J0456; J0696; J1200; J2920; J2930; J7030; J7050

== ENCOUNTER 2019-05-23 11:52 | Inpatient (IN) | payer MEDICARE, OTHER ==
[~2019-05-23 11:52] MED LIST changes: +AZITHROMYCIN250 MG PO; +CEFUROXIME250 MG PO; +IPRAT-ALBUT 0.5-3 ML INH; +METOPROLOL TART50 MG PO; +XARELTO10 MG PO
[2019-05-23 13:27] VITALS: BP 99/60
--- NOTE | 2019-05-23 13:41 | NUR ---
pt arrived to room 294 via wheelchair, direct admit, awake, alert, oriented X3, no acute distress; will continue to monitor.
[2019-05-23] MEDS ORDERED: DOXYCYCLINE 100MG/NS 100ML 100 ML IV SCH (14:00)
[2019-05-23] MEDS ORDERED: ALBUTEROL SULFATE HFA 8GM INHALATION AEROSOL INH PRN (14:15)
[2019-05-23] MEDS ORDERED: ALBUTEROL/IPRATROPIUM 3 ML NEB NEB PRN (14:15)
[2019-05-23] MEDS ORDERED: ZOLPIDEM TARTRATE 5 MG TAB PO PRN (14:30)
--- NOTE | 2019-05-23 15:08 | Diagnostic Imaging Report ---
EXAMINATION: CHEST 2 VIEWS INDICATION: ^r/o pneumonia ^[id number] ^1450 ^Y COMPARISON: 09/30/2018 FINDINGS: PA and lateral views TUBES and LINES: Stable dual-lead left chest wall cardiac device. LUNGS: Hyperinflated lungs. Central vascular congestion. Increased right basilar hazy opacities. PLEURA: No pneumothorax. Unchanged obscuration of the bilateral costophrenic angles, representing small effusions or scarring. HEART AND MEDIASTINUM: The cardiac silhouette is enlarged. Aorta is calcified and tortuous. BONES AND SOFT TISSUES: No acute osseous lesion. Soft tissues are unremarkable. UPPER ABDOMEN: No free air under the diaphragm. IMPRESSION: Enlarged cardiac silhouette and central vascular congestion. Hyperinflated lungs, suggestive of emphysematous changes. Increased right lower lung field hazy opacities, representing subsegmental atelectasis and/or pneumonia. Signed by: Dr. Jhon Thibodeaux MD on 05/23/2019 3:05 PM
[2019-05-23 15:10] LABS: BASOPHILS % 0.4 % (0.0-1.0); EOSINOPHILS % 0.2 % (0.0-6.0); HEMATOCRIT 38.6 % (34.2-44.1); HEMOGLOBIN 11.9 g/dL (12.0-16.0); LYMPHOCYTES # (AUTO) 0.2 (1.0-3.2); LYMPHOCYTES % 3.2 % (18.0-39.1); MEAN CORPUSCULAR HEMOGLOBIN 30.7 pg (28-32); MEAN CORPUSCULAR HGB CONC 30.8 g/dL (31-35); MEAN CORPUSCULAR VOLUME 99.5 fL (81-99); MONOCYTES # (AUTO) 0.5 (0.2-0.8); MONOCYTES % 9.3 % (4.4-11.3); NEUTROPHILS # (AUTO) 4.9 (2.1-6.9); NEUTROPHILS % 86.4 % (38.7-80.0); PLATELET COUNT 123 x10e3/uL (140-360); RED BLOOD COUNT 3.88 x10e6/uL (3.6-5.1); RED CELL DISTRIBUTION WIDTH 15.1 % (11.7-14.4)
[2019-05-23 15:28] LABS: ALBUMIN 3.1 g/dL (3.5-5.0); ALBUMIN/GLOBULIN RATIO 1.1 (0.8-2.0); ANION GAP 20.4 mmol/L (8-16); CALCIUM 7.6 mg/dL (8.4-10.2); CREATININE, SERUM 2.5 mg/dL (0.57-1.11); POTASSIUM 3.4 mmol/L (3.5-5.1)
[2019-05-23 15:47] LABS: LYMPHOCYTES % (MANUAL) 4 % (19-48); MONOCYTES % (MANUAL) 10 % (3.4-9.0); NEUTROPHILS % (MANUAL) 86 % (40-74)
[2019-05-23 15:48] LABS: PLATELET ESTIMATE SLIGHTLY DECREASED; PLATELET MORPHOLOGY COMMENT NORMAL; RBC MORPHOLOGY COMMENT NORMAL
[2019-05-23] MEDS ORDERED: SODIUM CHLORIDE 0.9% 250ML 250 ML ONE (16:17)
[2019-05-23] MEDS: AZITHROMYCIN 500MG/NS 250 ML 250 ML IV SCH (16:22)
[2019-05-23] MEDS: SODIUM BICARBONATE 650 MG TAB PO SCH ×2 (16:23→21:00)
[2019-05-23] MEDS: RIVAROXABAN 10 MG TABLET PO SCH (16:24)
[2019-05-23] MEDS: METOPROLOL TARTRATE 50 MG TAB PO SCH (16:24)
[2019-05-23 17:00] VITALS: BP 131/65
[2019-05-23] MEDS: ALBUTEROL/IPRATROPIUM 3 ML NEB INH PRN (18:46)
--- NOTE | 2019-05-23 19:23 | NUR ---
Received change of shift report from AM nurse. Walking rounds completed.
[2019-05-23 20:00] VITALS: BP 90/59
[2019-05-23] MEDS: METHYLPREDNISOLONE SOD SUCC 40 MG/ML VIAL 1ML IV SCH (21:00)
--- NOTE | 2019-05-23 21:00 | NUR ---
Patient in bed with no c/o pain at this time. Reposition on right side for comfort. Continue monitor.
[2019-05-24] VITALS (11 sets, daily range): BP systolic 90–133; BP diastolic 55–76
--- NOTE | 2019-05-24 03:15 | NUR ---
Patient resting quitly with no c/o at this time.
--- NOTE | 2019-05-24 07:04 | NUR ---
received shift change report from PM nurse, walking rounds completed; pt resting in bed, no signs of acute distress, will continue to monitor.
[2019-05-24] MEDS ORDERED: ACETAMINOPHEN/CODEINE 300MG - 30MG TAB PO PRN (08:15)
[2019-05-24] MEDS ORDERED: HYDRALAZINE HCL 20 MG/ML VIAL IV PRN (08:15)
[2019-05-24] MEDS ORDERED: ACETAMINOPHEN 325 MG TAB PO PRN (08:15)
[2019-05-24] MEDS ORDERED: ONDANSETRON HCL INJ 2MG/ML 2ML 2 MG/ML VIAL IV PRN (08:15)
[2019-05-24] MEDS ORDERED: MELATONIN 5 MG TABLET PO PRN (08:15)
[2019-05-24] MEDS: METHYLPREDNISOLONE SOD SUCC 40 MG/ML VIAL 1ML IV SCH ×2 (09:35→21:58)
[2019-05-24] MEDS: BUMETANIDE 1 MG TAB PO SCH (09:36)
[2019-05-24] MEDS: METOPROLOL TARTRATE 50 MG TAB PO SCH ×2 (09:37→16:55)
[2019-05-24] MEDS: SODIUM BICARBONATE 650 MG TAB PO SCH ×3 (09:44→21:58)
--- NOTE | 2019-05-24 11:18 | Consultation ---
DATE OF CONSULTATION: 05/24/2019 Pulmonary Critical Care Consultation CHIEF COMPLAINT: Worsening congestion, dyspnea, not responding to outpatient therapy. HISTORY OF PRESENT ILLNESS: The patient is an 83-year-old woman. She has a history of end-stage renal disease and COPD. She was previously hospitalized for aspiration pneumonia in September of this year. She has been receiving regular dialysis 2 times a week. She has noticed worsening dyspnea and congestion. She has increased cough. She did not respond to outpatient steroids, antibiotics, and nebulizer treatments. She continued to have congestion and wheezing. PAST MEDICAL HISTORY: 1. End-stage renal disease. 2. COPD. 3. Atrial fibrillation. 4. Hypertension. 5. Aspiration pneumonia. PAST SURGICAL HISTORY: 1. Prior dialysis access placement. 2. Cholecystectomy. SOCIAL HISTORY: The patient is not an active smoker or drinker. FAMILY HISTORY: Her son had cancer. ALLERGIES: THERE ARE NO KNOWN DRUG ALLERGIES. REVIEW OF SYSTEMS: The patient is afebrile. She has no headache or neck pain. She is not complaining of any chest pain. She does note congestion and increased cough. She has increased dyspnea. She has no abdominal pain. She has no nausea or vomiting. She has no leg edema. She has diffuse weakness and some weight loss, but no focal abnormalities. PHYSICAL EXAMINATION: VITAL SIGNS: The patient is afebrile. The blood pressure is 110/67, saturation is 100% on 3 L. HEENT: Shows no facial swelling or erythema. CARDIAC: Reveals a regular rate and rhythm with a normal S1, S2. There are no murmurs or rubs. LUNGS: Auscultation of lungs reveals rhonchorous breath sounds bilaterally. There is no wheezing. ABDOMEN: Soft, nontender. There is no rebound or guarding. EXTREMITIES: Show no leg edema or calf tenderness. There is no cyanosis or clubbing. SKIN: Shows no rashes. NEUROLOGICAL: Shows no focal abnormalities. LABORATORY DATA: Hemoglobin is 11.9, and the platelet count is 123. The BUN to creatinine ratio is 39 to 2.5. Other electrolytes are within normal limits. IMPRESSION: 1. Aspiration pneumonia with sepsis, present on admission. 2. Lwphu-ox-uanuzrc systolic congestive heart failure. 3. Moderate aortic stenosis with xhcz-du-fgvfbtgf aortic insufficiency. 4. Pulmonary hypertension secondary to underlying cardiopulmonary disease. 5. Chronic obstructive pulmonary disease. 6. End-stage renal disease. 7. Severe protein-calorie malnutrition. PLAN: 1. Continue IV antibiotics. 2. CT scan of the chest without contrast. 3. Speech therapy and swallowing evaluation. 4. Nutritional supplementation and dietary consult. 5. Echocardiogram and Cardiology evaluation. 6. Continued diuresis. 7. Continue dialysis as needed. MD UMA Alexis/MODL /[id number]
[2019-05-24] MEDS: ALBUTEROL/IPRATROPIUM 3 ML NEB INH PRN (13:15)
[2019-05-24] MEDS: CEFTRIAXONE SOD 1 GM/NS 50 ML 50 ML IV SCH (13:23)
--- NOTE | 2019-05-24 14:20 | NUR ---
pt being taken off the floor for CT scan
--- NOTE | 2019-05-24 15:30 | Diagnostic Imaging Report ---
EXAM: CT Chest WITHOUT contrast 05/24/2019 10:05 AM INDICATION: ^Lower lobe infiltrate COPD COMPARISON: CT chest 09/30/2018 and chest radiograph 05/23/2019 on 08/16/2015 TECHNIQUE: Chest was scanned utilizing a multidetector helical scanner from the lung apex through the level of the adrenal glands without administration of IV contrast. Absence of intravenous contrast decreases sensitivity for detection of lymphadenopathy and vascular pathology. Coronal and sagittal reformations were obtained. Routine protocol was performed. IV CONTRAST: None COMPLICATIONS: None RADIATION DOSE: Total DLP: 173.8 mGy*cm Estimated effective dose: (DLP x 0.015 x size factor) mSv CTDIvol has been reviewed. It is below the limits set by the Radiation Protocol Committee (RPC). FINDINGS: LINES/ TUBES: Unchanged 2-lead pacemaker with leads in the right atrial appendage and right ventricle. LUNGS AND AIRWAYS: Advanced bilateral upper lobe predominant centrilobular emphysema. Subpleural bullous changes in the right middle lobe. Interval development of a small consolidations in both lower lobes, right greater than left. Diffuse bilateral lower lobe peribronchial wall thickening with minimal bronchiectasis. A 4 mm triangular shaped solid nodule in the right upper lobe on series 3, image 45 is unchanged and suggestive of intrapulmonary lymph node. Stable 1 cm groundglass nodule in the left upper lobe on image 40 since 08/16/2015. No new pulmonary nodules. Airways are normal. PLEURA: The pleural spaces are clear. HEART AND MEDIASTINUM: The thyroid gland is normal. Unchanged few subcentimeter noncalcified mediastinal lymph nodes. Cardiomegaly. There is no pericardial effusion. 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 Diffuse moderate atherocarotic calcification throughout the thoracic aorta. The main pulmonary artery normal in size measuring 2.6 cm in diameter. UPPER ABDOMEN: Moderate calcifications of the visualized suprarenal abdominal aorta without aneurysm. Mild renal cortical atrophy. Vascular calcifications in both kidneys. BONES: Multilevel degenerative changes of the thoracic spine. SOFT TISSUES: Unremarkable. IMPRESSION: Bilateral lower lobe consolidation, right greater than left, with associated pleural effusions are suggestive of multifocal pneumonia. Advanced bilateral emphysema, stable. Left upper lobe 1 cm groundglass nodule, stable since 08/16/2015. Recommend additional follow-up CT chest without contrast in 2 years to demonstrate 5 year stability. Signed by: Rochelle Valencia.D. on 05/24/2019 3:27 PM
[2019-05-24] MEDS: AZITHROMYCIN 500MG/NS 250 ML 250 ML IV SCH (16:53)
[2019-05-24] MEDS: FAMOTIDINE 20 MG TAB PO SCH (16:54)
[2019-05-24] MEDS: RIVAROXABAN 10 MG TABLET PO SCH (16:56)
--- NOTE | 2019-05-24 18:20 | NUR ---
went to pt's room, pt is respiratory distress, unable to obtain O2 sat, BP 104/72, HR 140, respiratory called for breathing tx, rapid called.
--- NOTE | 2019-05-24 18:30 | NUR ---
rapid in process, pt O2 sat showing 73-74% on NRB. Dr leigh at bedside, pt transferred to ICU with NRB in place.
--- NOTE | 2019-05-24 18:45 | NUR ---
attempted to contact daughter, left messages on phone.
--- NOTE | 2019-05-24 19:40 | Diagnostic Imaging Report ---
EXAMINATION: CHEST SINGLE (PORTABLE) INDICATION: Acute respiratory distress COMPARISON: Chest CT 05/24/2019 FINDINGS: AP view TUBES and LINES: Left chest wall cardiac device with leads in the right atrium and right ventricle. LUNGS/PLEURA: Hypersplenism lungs with flattened hemidiaphragms. Subtle hazy airspace opacities in the upper lungs. Pulmonary vascular congestion. No obvious airspace disease. Mild blunting of the costophrenic sulci bilaterally. No pneumothorax. HEART AND MEDIASTINUM: Cardiac size is moderately enlarged. Aortic arch calcifications BONES AND SOFT TISSUES: There are degenerative changes in the thoracic spine. Surgical clips in the right axilla. UPPER ABDOMEN: No free air under the diaphragm. IMPRESSION: Moderate cardiomegaly and pulmonary vascular congestion and trace pleural effusions. Pulmonary findings of emphysema. Signed by: Freddy Wong DO on 05/24/2019 7:37 PM
--- NOTE | 2019-05-24 20:06 | Progress Note ---
DATE: 05/24/2019 SUBJECTIVE: The patient had a rapid response call at 6:25 because of difficulty obtaining her oxygen saturation. She was placed on 100% with BiPAP, transferred to the unit. After arriving in the ICU, we were able to obtain a blood gas. Her PO2 was 550. Her pH was 7.38, and her CO2 was 37. Her bicarb was 22.8. She has no new complaints. Her dyspnea has slightly improved since yesterday. She is not complaining of chest pain or fevers. She has a history of difficulty obtaining peripheral oxygen saturation readings. The O2 saturation monitor in the office usually unable to obtain her oxygen saturation. PHYSICAL EXAMINATION: VITAL SIGNS: The blood pressure is 119/60 and the heart rate is 105, it is irregularly irregular. Her saturation is now 98% with a forehead saturation monitor. HEENT: She has no facial swelling or erythema. CARDIAC: Reveals regular rate and rhythm with normal S1, S2. LUNGS: Auscultation of lungs reveals clear breath sounds bilaterally. There are rhonchi. ABDOMEN: Soft, nontender. There is no rebound or guarding. EXTREMITIES: Show no leg edema or calf tenderness. There is no cyanosis or clubbing. IMPRESSION: 1. Aspiration pneumonia with sepsis, present on admission. 2. Chronic obstructive pulmonary disease. 3. Aortic stenosis. 4. Atrial fibrillation. 5. Chronic systolic congestive heart failure. 6. Severe protein-calorie malnutrition. 7. End-stage renal disease. PLAN: 1. Continue oxygen with nasal cannula. 2. Continue current antibiotics. 3. Continue current cardiac regimen. 4. Dialysis as needed. 5. Awaiting Cardiology evaluation. MD UMA Alexis/MODL /[id number]
--- NOTE | 2019-05-24 21:11 | NUR ---
Patient arrived to ICU 189 at 1830 after rapid response was called for dyspnea and worsening condition. Pt on Bipap, EKG, ABG, CXR complete. Dr. Nina Canchola at bedside, assessed patient and reviewed results. Per Dr. Nina Canchola, take patient off bipap and place back to 3L NC. Pt denies pain, CP, ABD pain, SOB. Appears comfortable. A&Ox4, VSS, cardiac rhythm Atrial Fibrilation with rate 90-110. New consultation order placed from Dr. Nina Canchola for Dr. Amber Canchola regarding A. Fib & Aortic Stenosis, consult called to answering service at 2044. Requested call back. No call back at this time. Addendum: 05/24/19 at 2119 by Felipa Gann RN Patient also has a L chest pacemaker. It is not firing and pt is unaware of last interrogation. Will pass on to Dr. Amber Canchola and danay CONNOR.
--- NOTE | 2019-05-24 21:51 | NUR ---
Notified Dr. Nina Canchola that pt does not have a code status in. Spoke with daughter (POA), stated that she is DNR/DNI. New order for code status placed.
[2019-05-25] VITALS (20 sets, daily range): BP systolic 100–130; BP diastolic 57–87
[2019-05-25 04:53] LABS: BASOPHILS % 0.1 % (0.0-1.0); HEMATOCRIT 34.3 % (34.2-44.1); LYMPHOCYTES # (AUTO) 0.1 (1.0-3.2); LYMPHOCYTES % 1.7 % (18.0-39.1); MEAN CORPUSCULAR HEMOGLOBIN 30.5 pg (28-32); MEAN CORPUSCULAR HGB CONC 32.1 g/dL (31-35); MONOCYTES # (AUTO) 0.2 (0.2-0.8); NEUTROPHILS # (AUTO) 6.5 (2.1-6.9); NEUTROPHILS % 94.8 % (38.7-80.0); PLATELET COUNT 142 x10e3/uL (140-360); RED BLOOD COUNT 3.61 x10e6/uL (3.6-5.1); RED CELL DISTRIBUTION WIDTH 14.9 % (11.7-14.4)
[2019-05-25 05:13] LABS: ALBUMIN 2.8 g/dL (3.5-5.0); CALCIUM 7.7 mg/dL (8.4-10.2); CREATININE, SERUM 3.51 mg/dL (0.57-1.11)
[2019-05-25] MEDS: FAMOTIDINE 20 MG TAB PO SCH ×3 (07:59→16:44)
[2019-05-25] MEDS: SODIUM BICARBONATE 650 MG TAB PO SCH ×3 (08:00→16:44)
[2019-05-25] MEDS: BUMETANIDE 1 MG TAB PO SCH (08:00)
[2019-05-25] MEDS: METOPROLOL TARTRATE 50 MG TAB PO SCH ×3 (08:01→17:00)
[2019-05-25] MEDS: METHYLPREDNISOLONE SOD SUCC 40 MG/ML VIAL 1ML IV SCH (08:09)
[2019-05-25] MEDS: CEFTRIAXONE SOD 1 GM/NS 50 ML 50 ML IV SCH (09:16)
--- NOTE | 2019-05-25 10:23 | Progress Note ---
DATE: 05/25/2019 SUBJECTIVE: The patient was transferred to the ICU temporarily last night because of difficulty with the pulse oximeter. This morning, she has no new complaints. She still has some congestion. She is still requiring oxygen at 3 L. The patient has atrial fibrillation with a controlled ventricular rate. She has no chest pain. PHYSICAL EXAMINATION: VITAL SIGNS: The blood pressure is 125/87, the saturation is 97% on 3 L. HEENT: No facial swelling or erythema. CARDIAC: Reveals regular rate and rhythm with normal S1, S2. LUNGS: Auscultation of lungs reveals rhonchorous breath sounds bilaterally. ABDOMEN: Soft, nontender. There is no rebound or guarding. EXTREMITIES: No leg edema or calf tenderness. There is no cyanosis or clubbing. SKIN: No rashes. LABORATORY DATA: Hemoglobin is 11 and the platelet count is 142. White blood cell count is 6.8. BUN to creatinine ratio is 67 to 3.5 and the other electrolytes are within normal limits. The AST is 119 and the ALT is 119. CT scan of the chest shows bilateral lower lobe infiltrates. IMPRESSION: 1. Aspiration pneumonia with sepsis, present on admission. 2. Atrial fibrillation with a rapid ventricular response. 3. Acute on chronic systolic congestive heart failure. 4. Moderate aortic stenosis with luzs-ra-xopzwjqf aortic insufficiency. 5. Pulmonary hypertension secondary to underlying cardiopulmonary disease. 6. Chronic obstructive pulmonary disease. 7. End-stage renal disease. 8. Severe protein-calorie malnutrition. PLAN: 1. Cardiology evaluation. 2. Continue IV antibiotics. 3. Await Speech Therapy consultation. 4. Physical therapy. 5. Probable dialysis tomorrow, Saturday. MD UMA Alexis/DEYANIRAL /[id number]
--- NOTE | 2019-05-25 12:39 | Consultation ---
DATE OF CONSULTATION: 05/25/2019 Cardiology Consultation CHIEF COMPLAINT: The patient is an 83-year-old with dyspnea. HISTORY OF PRESENT ILLNESS: The patient is an 83-year-old with known chronic obstructive pulmonary disease, admitted with worsening dyspnea and difficulty breathing. The patient has had no chest pain. The patient was noted to be in atrial fibrillation and a Cardiology consultation was called. PAST MEDICAL HISTORY: Significant for: 1. Chronic obstructive pulmonary disease. 2. Chronic atrial fibrillation. 3. Hypertension. 4. End-stage renal disease. PREVIOUS SURGICAL HISTORY: Includes: 1. Prior dialysis access placement. 2. Cholecystectomy. SOCIAL HISTORY: The patient does not drink and does not smoke. The patient was a smoker in the past. FAMILY HISTORY: There is a known family history of hypertension and heart disease. PHYSICAL EXAMINATION: GENERAL: The patient is a thin female, in no obvious distress. VITAL SIGNS: Include a temperature of 98.8, pulse of 96, and blood pressure of 130/70. HEAD, EARS, EYES, NOSE, AND THROAT: The patient's cranium was normocephalic and atraumatic. Extraocular muscles were intact. Sclerae were anicteric. Pupils were equal, round, and reactive to light. There is no pallor or cyanosis of the oral mucosa. There is no erythema or edema of the throat. NECK: Supple. No jugular venous distention. No carotid bruits. CHEST: Clear to auscultation and percussion. CARDIAC: Demonstrated an irregularly irregular rhythm. There was a short 2/6 systolic murmur. ABDOMEN: Demonstrated good bowel sounds. No tenderness and no masses. EXTREMITIES: No clubbing, no cyanosis, and no edema. NEUROLOGIC: The patient was alert and oriented x3. Cranial nerves II through XII were intact. Motor strength was +5/+5 in all limbs. DIAGNOSTIC DATA: The patient's EKG demonstrated atrial fibrillation with nonspecific ST and T-wave changes. An echocardiogram demonstrated an ejection fraction of 45% to 50%. There was lyzj-zu-qmfrwujb mitral regurgitation and jnwvpily-ih-sibivh tricuspid regurgitation. There was severe biatrial enlargement. IMPRESSION: The patient is an 83-year-old with chronic atrial fibrillation. RECOMMENDATIONS: My recommendations are: 1. To continue metoprolol for rate control. 2. To continue Xarelto for anticoagulation and stroke prophylaxis. 3. It is okay for the patient to be moved out of the ICU back to the regular floor. MD SYDNIE Toussaint/JAMESON /[id number] cc: Trace Mayo MD
[2019-05-25] MEDS: ALBUTEROL/IPRATROPIUM 3 ML NEB INH PRN (14:10)
[2019-05-25] MEDS: AZITHROMYCIN 500MG/NS 250 ML 250 ML IV SCH (16:44)
[2019-05-25] MEDS: RIVAROXABAN 10 MG TABLET PO SCH (16:45)
[2019-05-25] MEDS ORDERED: LORAZEPAM INJ 2 MG/ML VIAL ONE (17:53)
[2019-05-25] MEDS ORDERED: LORAZEPAM INJ 2 MG/ML VIAL IV ONE (18:00)
--- NOTE | 2019-05-25 18:21 | Consultation ---
DATE OF CONSULTATION: 05/25/2019 HISTORY OF PRESENT ILLNESS: Ms. Zehra Fletcher is known to be 83-year-old white lady, underlying history of end-stage renal disease, atrial fibrillation, hypertension, COPD, and prior cholecystectomy, who presented with possible pneumonia and aspiration. She has been having increasing cough. The patient has lost a lot of weight since I last saw her. She has been having poor appetite. Otherwise perfectly awake, alert, and oriented x3. A bit hard of hearing, but other than that, no apparent complaints. She is scheduled for dialysis today. MEDICATIONS: Currently, she is on azithromycin, ceftriaxone, albuterol/Atrovent nebulizer, famotidine, metoprolol 25 p.o. b.i.d., methylprednisolone 30 mg IV q.12, Xarelto 10 mg daily, Ambien p.r.n., ondansetron p.r.n., sodium bicarbonate 1300 mg p.o. t.i.d. She had an adverse reaction to alcohol! LABORATORY DATA: Lab show white count 6.89, hemoglobin 11 with a potassium 4, creatinine 3.5. Albumin is 2.8 with total protein 5.7 and calcium 7.7. PHYSICAL EXAMINATION: GENERAL: Awake, alert, and oriented x3. Thin built female, very poor muscle mass. Has a pacemaker, left subclavian area. VITAL SIGNS: Blood pressure 112/57, pulse rate 77, and afebrile. HEAD AND NECK: Cornea clear. Oral mucosa moist. Neck veins flat. LUNGS: Rhonchi. Occasional scattered bilaterally. No rales. HEART: Irregularly regular rhythm. ABDOMEN: Otherwise soft and nontender. No apparent visceromegaly. EXTREMITIES: Lower extremity examination shows no edema. IMPRESSION AND PLAN: 1. Underlying possible pneumonia. 2. Chronic obstructive pulmonary disease. 3. Atrial fibrillation, transferred to the ICU after rapid response, but oxygenation appears very stable. Plan on arranging for hemodialysis. We will start Megace and regular diet. Discontinue Bumex. The patient wishes to be a DNR. MD NEWTON Blankenship/MODL /[id number]
[2019-05-25 18:29] LABS: ABG PCO2 37 mmHg (41-51); ABG PH 7.38 (7.31-7.41)
[2019-05-25 18:30] LABS: ABG HCO3 22 mmol/L (23-28); ABG PO2 550 mmHg (80-105)
--- NOTE | 2019-05-25 18:50 | NUR ---
Dr. Tesfaye notified of patient's AM lab results, MD ordered dialysis for today. [facility] contacted. Dr. Munoz gave orders to transfer patient to medical surgical floor with telemetry and no pulse ox monitoring due to poor peripheral circulation and inaccurate readings. Patient requested for palliative care consult. Selin LANG gave orders for palliative care consult. [employer] Zehra came and had discussions with patient and patient's daughter Maryan. Patient filled out DNR and DNI paperwork and is placed in chart. Speech therapy came by to do bedside swallow evaluation and recommended modified barium swallow. Exam ordered to be done tomorrow. Pt had dialysis today 1.5 L removed. Patient began to have respiratory distress and was saying she could not breathe. Respirations in 30-40's, Blood pressure 100/58, HR 110. Patient was agitated and flailing her arms. Patient repositioned in bed, respiratory paged and oxygen NC increased to 5L. Patient still having anxiety and agitation, respiratory placed patient on bipap. Dr. Nina Canchola paged and orders for Ativan IV because patient cannot take PO meds at this time. Ativan administered per order, patient became unarousable and stopped breathing. Reversal medication Flumazenil given, patient still unarousable and not breathing, unable to obtain blood pressures. rope making machine operator aware of patient's . Selin LANG notified as well. ER physician called to decare time of . Patient's daughter Maryan notified of patient's . Family members on way to see patient. ER MD declared time of 1814. Post mortem care provided. [facility] called and [facility] in [place] contacted per family's wishes.
--- NOTE | 2019-05-25 20:40 | NUR ---
Following up with the health care team regarding patient expiration, Dr. Yoni Canchola notified @ 1943, Dr. Eric Canchola notified @ 1947, and Dr. Tesfaye notified @ 2034. Family has gathered all personal belongings of patient and the patient has been released to home.
[2019-05-26] MEDS ORDERED: MEGACE 400MG/ 10ML CUP PO SCH (09:00)
--- NOTE | 2019-05-26 18:59 | Discharge Summary ---
SUMMARY: ADMISSION DIAGNOSES: 1. Acute exacerbation of chronic obstructive pulmonary disease with sepsis. 2. End-stage renal disease. 3. Atrial fibrillation. 4. Hypertension with end-stage renal disease. 5. Hypokalemia. 6. Possible aspiration pneumonia. DISCHARGE DIAGNOSES: 1. Acute exacerbation of chronic obstructive pulmonary disease with sepsis. 2. End-stage renal disease. 3. Atrial fibrillation. 4. Hypertension with end-stage renal disease. 5. Hypokalemia. 6. Possible aspiration pneumonia. 7. Respiratory failure. HISTORY: COPD, end-stage renal disease, hypertension, insomnia, and AFib. SURGICAL HISTORY: Cholecystectomy, bilateral hand surgery. FAMILY HISTORY: The patient's son had cancer. SOCIAL HISTORY: Noncontributory. HOSPITAL COURSE: An 83-year-old female, admitted from Dr. Sarabjit Canchola's office due to shortness of breath and dry cough for the last few days. She denies fever and chills. She uses oxygen at home, but is unaware of how many liters per minute. On admission, the patient had an echo that showed an EF of 38%. EKG was AFib at 94. Chest x-ray on admission showed enlarged cardiac silhouette and central vascular congestion, hyperinflated lungs, increased right lower lobe opacity representing subsegmental atelectasis and/or pneumonia. Speech therapy was consulted, who did a bedside swallow evaluation, who recommended an MBS, which was pending at time of . Blood cultures were negative. CT of the chest on 05/24 showed bilateral lower lobe consolidation, right greater than left with associated pleural effusions suggestive of multifocal pneumonia. Advanced bilateral emphysema, left upper lobe 1 cm ground-glass nodule since 08/16/2015. After speaking with the patient and daughter, they both agreed to DNR/DNI status. On the night of 05/25/2019, the patient developed respiratory distress and agitation. She was given a dose of lorazepam, which was later reversed. She required BiPAP, but did not recover. Time of was 1815 on 05/25/2019, called by the ER doctor. Family aware and at bedside. Dictated by Selin Bowers NP Trace Mayo MD WILTON/MODL /[id number]
== END 2019-05-25 20:40 | disposition expired | DRG 871 ==
LOC: MED/SURG3 13:19 → ICU 05-24 18:40 → OBSVTOIN 05-25 08:22
PROVIDERS: ADMIT Internal Medicine; ATTEND Internal Medicine
PROC: 5A1D70Z Performance of Urinary Filtration, Intermittent, Less than 6 Hours Per Day (ICD-10-PCS; principal; 2019-05-25)
PROC: 4B02XSZ Measurement of Cardiac Pacemaker, External Approach (ICD-10-PCS; 2019-05-25)
DX: A41.9 Sepsis, unspecified organism (principal); J69.0 Pneumonitis due to inhalation of food and vomit; I50.23 Acute on chronic systolic (congestive) heart failure; N18.6 End stage renal disease; E43 Unspecified severe protein-calorie malnutrition; J96.21 Acute and chronic respiratory failure with hypoxia; Z68.1 Body mass index [BMI] 19.9 or less, adult; I13.2 Hypertensive heart and chronic kidney disease with heart failure and with stage 5 chronic kidney disease, or end stage renal disease; I48.91 Unspecified atrial fibrillation; Z99.2 Dependence on renal dialysis; Z66 Do not resuscitate; I35.2 Nonrheumatic aortic (valve) stenosis with insufficiency; I27.20 Pulmonary hypertension, unspecified; I50.84 End stage heart failure; J43.9 Emphysema, unspecified; E87.6 Hypokalemia; I27.29 Other secondary pulmonary hypertension; I35.0 Nonrheumatic aortic (valve) stenosis; F17.210 Nicotine dependence, cigarettes, uncomplicated
CPT/HCPCS: 36415; 71045; 71046; 71250; 80053; 82805; 83036; 84134; 84443; 85025; 87040; 87340; 93005; 93306; 94640; 94660; 96360; G0378; J0456; J0696; J2060; J2920; J7050